=== PATIENT | male | born 1955 | race Hispanic/Latino ===

== ENCOUNTER 2017-03-17 10:19 | Outpatient (CLI) | payer BC ==
[2017-03-17 11:32] LABS: Hematocrit 40.3 % (42.0-52.0); Mean Platelet Volume 9.4 fL (7.4-10.4); Red Blood Cell (RBC) Count 4.45 mill/uL (4.70-6.10); White Blood Cell (WBC) Count 6.8 thou/uL (4.8-10.8)
[2017-03-17 11:47] LABS: PTT 38.6 SEC (22.9-36.1); Prothrombin Time 13.7 SEC (12.0-14.7)
[2017-03-17 11:57] LABS: Anion Gap 12 mmol/L (10-20); BUN (Urea Nitrogen) 27 mg/dL (8.4-25.7); Calc. Creatinine Clearance 0 mL/min (70-130); Calcium 9.5 mg/dL (7.8-10.44); Carbon Dioxide 26 mmol/L (23-31); Chloride 107 mmol/L (98-107); Estimated GFR-MDRD 38
[2017-03-17 14:07] LABS: Bilirubin Negative (Negative); Blood, Urine Negative (Negative); Glucose, Urine (Dipstick) Negative (Negative); Ketone, Urine Negative (Negative); Nitrite Negative (Negative); Protein, Urine (Dipstick) Negative (Neg-Trace); Urobilinogen 0.2 mg/dL (0.2-1.0)
[2017-03-17 14:19] LABS: Bacteria/HPF None Seen HPF (None Seen); Hyaline Casts/LPF 0-3 HYALINE CAST LPF (0-3 Hyaline); RBC/HPF 0-3 HPF (0-3); Squamous Epithelial None Seen HPF (0-3); WBC/HPF None Seen HPF (0-3)
== END 2017-03-17 10:20 | disposition home or self-care (01) ==
LOC: LABBT 10:19
PROVIDERS: ATTEND Urology
DX: N13.39 Other hydronephrosis (principal); N32.89 Other specified disorders of bladder; N28.9 Disorder of kidney and ureter, unspecified
CPT/HCPCS: 80048; 81001; 85027; 85610; 85730; 87086; 88112

== ENCOUNTER 2017-03-18 06:45 | Outpatient (CLI) | payer BC | END 2017-03-18 06:46 | disposition home or self-care (01) | LOC: BICCT 06:45 | PROVIDERS: ATTEND Urology | DX: N13.39 Other hydronephrosis (principal); N32.89 Other specified disorders of bladder; N13.9 Obstructive and reflux uropathy, unspecified | CPT/HCPCS: 74176; 86850; 86900; 86901; 88112 ==

== ENCOUNTER 2017-03-18 09:04 | Outpatient (CLI) | payer BC | END 2017-03-18 09:05 | disposition home or self-care (01) | LOC: LABBT 09:04 | PROVIDERS: ATTEND Urology | DX: Z01.812 Encounter for preprocedural laboratory examination (principal); N13.30 Unspecified hydronephrosis | CPT/HCPCS: 86850; 86900; 86901; 88112 ==

== ENCOUNTER 2017-03-21 09:46 | Day surgery (SDC) | payer BC ==
[2017-03-17 11:02] VITALS: BMI 32.5
[2017-03-21] MEDS ORDERED: Levofloxacin 500 mg/D5W 100 ml Premix Bag ONE (11:48)
[2017-03-21] MEDS ORDERED: Fentanyl 100 MCG/2 ML VIAL ONE ×2 (12:07→13:59)
[2017-03-21] MEDS ORDERED: Iothalamate Meglumine 60% 50 ML VIAL FS ONE (12:14)
[2017-03-21] MEDS ORDERED: Piperacillin/Tazobactam 3.375 GM VIAL ONE (14:25)
[2017-03-21] MEDS ORDERED: SUGAMMADEX SODIUM 200 MG/2 ML VIAL ONE (14:43)
[2017-03-21] MEDS ORDERED: Lidocaine 1% PF 5 ML VIAL ONE (15:22)
[2017-03-21] MEDS ORDERED: Labetalol HCl 100 MG/20 ML VIAL ONE (15:22)
[2017-03-21] MEDS ORDERED: PHENYLEPHRINE-NS 100 MCG/ML 10 ML SYRINGE ONE (15:22)
[2017-03-21] MEDS ORDERED: ePHEDrine/0.9% NaCl/PF SYRINGE 50 mg/10 ml ONE (15:22)
[2017-03-21] MEDS ORDERED: Dexamethasone 20 MG/5 ML VIAL ONE (15:22)
[2017-03-21] MEDS ORDERED: Glycopyrrolate 0.2 MG/ML 5 ML SYRINGE ONE (15:22)
[2017-03-21] MEDS ORDERED: Propofol 200 MG/20 ML VIAL ONE (15:22)
[2017-03-21] MEDS ORDERED: Ondansetron HCl/PF 4 MG/2 ML Vial ONE (15:22)
[2017-03-21] MEDS ORDERED: Phenazopyridine HCl 97.5 MG TABLET ONE (15:23)
[2017-03-21] MEDS ORDERED: Oxybutynin 5 MG TAB ONE (15:23)
--- NOTE | 2017-03-21 17:54 | OP ---
DATE OF SERVICE: 03/21/2017 PREOPERATIVE DIAGNOSES: A 62-year-old male with left hydronephrosis, acute renal insufficiency, rule out malignancy. POSTOPERATIVE DIAGNOSES: A 62-year-old male with left hydronephrosis, acute renal insufficiency, rule out malignancy. PROCEDURE: Cystoscopy, left retrograde pyelogram, 6 x 28 double-J ureteral stent placement with distal tail in situ, rigid ureteroscopy, ureteral biopsy x3. SURGEON: Shannon Arroyo D.O. ANESTHESIA: General. COMPLICATIONS: None apparent. DISPOSITION: To the recovery room in stable condition. IV FLUIDS: 1100 mL. ESTIMATED BLOOD LOSS: Minimal. DRAINS: A 6 x 28 left double-J ureteral stent, 18 Bangladeshi 10 mL urethral Duncan catheter to gravity leg bag. INTRAOPERATIVE FINDINGS: 1. MIld/ Moderate benign prostatic hyperplasia. 2. No evidence of bladder mass. 3. Left intramural ureteral debris with no evidence of distal ureteral mass. 4. Left proximal ureteral mass suspicious for TCC. 5. Severe left hydronephrosis. SPECIMEN: 1. Left ureteral biopsy x3. 2. Left distal UVJ intramural ureteral debris sent as a separate specimen. INDICATIONS FOR THE PROCEDURE AND HISTORY: Mr. Fountain is a 62-year-old male referred to me by Nephrology for renal insufficiency and severe hydronephrosis. Renal bladder ultrasound demonstrated possible bladder mass; however, this was nonspecific. A CT staging with noncontrast was obtained, there was a possibility of bladder mass obstructing the ureter; however, per my review, there is a hyperdensity at the proximal ureter measuring 3.7 cm in craniocaudal dimension and distal to this, there is no evidence of hydroureter. He presents today for diagnostic evaluation. He has been cleared by Internal Medicine, Cardiology; Neurology cleared him to be on baby aspirin from 325mg . Risks and complications including, but not limited to, bleeding, pain, infection, injury to adjacent organs, urosepsis , PE, DVT, perioperative morbidity and mortality CVA reviewed. All questions answered to his satisfaction, he desired to proceed. DESCRIPTION OF THE PROCEDURE: After an informed consent was signed, the patient was taken to the operating room, placed in a dorsal lithotomy position with the genital area prepped and draped in the usual surgical sterile fashion. Broad-spectrum antibiotics were provided. A 21 Bangladeshi cystoscope was utilized for cystoscopy. There was evidence of mild/moderate obstructing lateral lobes. Bladder was entered without any issues. There was no evidence of bladder lesion. The UOs were identified in normal anatomical location. However, the left intramural ureter appeared have intrinsic prominence due to mass effect. I was unable to perform a proper retrograde pyelogram as there was immediate efflux retrograde due to high-grade obstruction of the intramural portion, and unable to pass a 0.35 sensor nor angled Glidewire. I subsequently transitioned to rigid ureteroscope, with the ureter engaged with the ureteroscope, I was able to pass a 0.35 angled Glidewire to the level of the proximal ureter. Upon passing the ureteroscope/and wire to assess the distal intramural ureter, there was moderate amount of sedimentous whitish debris that effluxed . This was evacuated, and sent as a specimen. Ureteroscopic assessment of the distal ureter did not demonstrate evidence of intrinsic ureteral mass. We then subsequently transitioned to a cystoscope, as there was resistance at the level of the L3-L4 ureter with the wire. We passed an open-ended catheter to this level, there was a high-grade obstruction, which I was unable to opacify proximal to this on retrograde pyelogram. With negotiation I was able to pass a 0.35 Glidewire to the left upper pole and subsequently passed a 5 Bangladeshi open-ended catheter to the level of the renal pelvis. Retrograde pyelogram confirmed proper placement of the wire demonstrating severe hydronephrosis. The wire was then switched to a 0.35 sensor wire. Diagnostic ureteroscopy demonstrated a moderate large calcified mass at the level of L3-L4 ureter consistent with the CAT scan location. Using a back loading rigid cold cup biopsy, obtained three separate biopsies appeared to be good specimen. It is highly suspicious for TCC. We subsequently passed a 6 x 28 double-J ureteral stent with distal tail in situ. I did scope his ureter again to ensure that there was no other lesion, which I did not appreciate distal to the proximal ureteral mass. After the stent was placed, bladder was completely evacuated. An 18 Bangladeshi 10 mL urethral Duncan catheter was placed as there was moderate amount of debris with decompression of the severely hydronephrotic kidney. He was transferred to the recovery room in stable condition. He will follow up with me next week for removal of Duncan catheter. Discharge with ciprofloxacin 250 mg one p.o. b.i.d. for 7 days, Colace p.r.n., AZO p.r.n., VESIcare 5 mg 1 p.o. b.i.d. #5, [place] 5/325 #50 one to two p.o. q.6-8 hours p.r.n. prescription is provided. He will follow up regarding pathology results for further staging. MTDD
--- NOTE | 2017-03-21 21:18 | RAD ---
RETROGRADE PYELOGRAM 11 VIEWS: 03/21/17 Attention Sunita in billing: yes, this is an 11 view study. HISTORY: 62-year-old male with bladder mass and hydronephrosis. COMPARISON: No prior radiographs, CTs or ultrasounds, of the abdomen or pelvis. FINDINGS: Fluoroscopic spot images obtained in the OR of the left side of the abdomen and pelvis demonstrate fi rst a wire access of what is presumed to be the mid left ureter, followed by access of what is though t to be the left renal collecting system, followed by ingestion of contrast opacifying two severely d ilated left renal calyces. The rest of the left renal collecting system is not opacified. Final image s demonstrate placement of a left nephroureteral stent. IMPRESSION: 1. Severe left hydronephrosis. 2. Placement of left ureteral stent. POS: [facility]
== END 2017-03-21 17:13 | disposition home or self-care (01) ==
LOC: SDC 09:46
PROVIDERS: ATTEND Urology
PROC: 0T778DZ Dilation of Left Ureter with Intraluminal Device, Via Natural or Artificial Opening Endoscopic (ICD-10-PCS; principal; 2017-03-21)
PROC: 0TB78ZX Excision of Left Ureter, Via Natural or Artificial Opening Endoscopic, Diagnostic (ICD-10-PCS; principal; 2017-03-21)
DX: C66.2 Malignant neoplasm of left ureter (principal); N13.30 Unspecified hydronephrosis; N17.9 Acute kidney failure, unspecified; N40.0 Benign prostatic hyperplasia without lower urinary tract symptoms; I69.398 Other sequelae of cerebral infarction; H53.461 Homonymous bilateral field defects, right side; E11.22 Type 2 diabetes mellitus with diabetic chronic kidney disease; I12.9 Hypertensive chronic kidney disease with stage 1 through stage 4 chronic kidney disease, or unspecified chronic kidney disease; N18.3 Chronic kidney disease, stage 3 (moderate); E11.3299 Type 2 diabetes mellitus with mild nonproliferative diabetic retinopathy without macular edema, unspecified eye; E66.9 Obesity, unspecified; E78.5 Hyperlipidemia, unspecified; Z68.32 Body mass index [BMI] 32.0-32.9, adult; Z79.82 Long term (current) use of aspirin; Z79.2 Long term (current) use of antibiotics; Z79.899 Other long term (current) drug therapy; Z95.818 Presence of other cardiac implants and grafts; Z98.890 Other specified postprocedural states; Z87.891 Personal history of nicotine dependence
CPT/HCPCS: 74420; 86850; 86900; 86901; 88305; C1758; C1769; J1100; J1956; J2001; J2405; J2543; J2704; J3010; Q9961

== ENCOUNTER 2017-04-03 10:51 | Outpatient (CLI) | payer BC ==
--- NOTE | 2017-04-03 15:49 | NM ---
NUCLEAR MEDICINE BONE SCAN: 04/03/17 HISTORY: Left ureteral cancer. 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 COMPARISON: CT 03/18/17 outside facility. FINDINGS: Whole body delayed imaging was performed after the intravenous administration of 30 millicuries techn etium 99m MDP. There is normal osseous uptake of radiotracer. No focal increased areas of decreased areas of rotatio nal uptake to suggest metastatic disease. Left sided hydronephrosis. Moderate degenerative changes of the knees. Moderate degenerative changes of the left ankle and midfoot. IMPRESSION: 1. No evidence of osseous metastatic disease. 2. Left sided hydronephrosis. POS: [facility]
== END 2017-04-03 10:52 | disposition home or self-care (01) ==
LOC: NM 10:51
PROVIDERS: ATTEND Urology
DX: C66.2 Malignant neoplasm of left ureter (principal); N13.30 Unspecified hydronephrosis
CPT/HCPCS: 78306; A9503

== ENCOUNTER 2017-04-04 09:24 | Outpatient (CLI) | payer BC ==
[2017-04-04 10:00] LABS: ALT (SGPT) 36 U/L (8-55); AST (SGOT) 24 U/L (5-34); Alkaline Phosphatase 62 U/L (40-150); Anion Gap 12 mmol/L (10-20); BUN (Urea Nitrogen) 29 mg/dL (8.4-25.7); Bilirubin, Direct 0.3 mg/dL (0.1-0.3); Bilirubin, Total 0.6 mg/dL (0.2-1.2); Calc. Creatinine Clearance 0 mL/min (70-130); Calcium 10.2 mg/dL (7.8-10.44); Carbon Dioxide 26 mmol/L (23-31); Chloride 107 mmol/L (98-107); Estimated GFR-MDRD 41; Protein, Total 8.1 g/dL (5.8-8.1)
--- NOTE | 2017-04-04 13:56 | CT ---
CT CHEST AND ABDOMEN AND PELVIS WITHOUT IV CONTRAST: HISTORY: Left ureteral cancer. 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 FINDINGS: Absence of oral and IV contrast reduces the sensitivity of the exam, particularly for evaluation of m ediastinal hilar vascular structures and solid organs involved. The possibility of metastatic diseas e cannot be completely excluded on this study. Bullous changes are seen in the lung figueredo bilaterally. There is a 5 mm peripheral nodule in the le ft lower lobe. No pleural or pericardial effusions are seen. No mediastinal, axillary, or periaortic lymphadenopathy is seen. There are vascular calcifications w ithout evidence of aneurysmal dilatation of the thoracic aorta. No calcified gallstones are seen. No free air or free fluid is noted in the abdomen or pelvis. A no rmal appearing appendix is seen. A fat-containing left inguinal hernia is present. No calculi are seen in the kidneys, ureters, or urinary bladder. There is a 1 cm low density lesion in the right kidney and a 1.4 cm low density lesion in the left renal cortex. There is a left-sided ureteral stent. There is thickening of the proximal left ureter and left hydronephrosis. The prosta te is enlarged. There are degenerative changes in the thoracolumbar spine. No osteolytic or osteobl astic lesions are seen. IMPRESSION: 1. Bullous emphysema. 2. A 5 mm, indeterminate left lower lobe lung nodule. 3. Low density lesion in the kidneys. Ultrasound is recommended to confirm that these represent cys ts. 4. Left proximal ureteric mass/malignancy. 5. Prostatic enlargement. POS: [facility]
== END 2017-04-04 09:25 | disposition home or self-care (01) ==
LOC: CT 09:24
PROVIDERS: ATTEND Internal Medicine Medical Oncology
DX: C66.2 Malignant neoplasm of left ureter (principal); J43.9 Emphysema, unspecified; R91.1 Solitary pulmonary nodule; N28.89 Other specified disorders of kidney and ureter; N40.0 Benign prostatic hyperplasia without lower urinary tract symptoms
CPT/HCPCS: 71250; 74177; 80048; 80076

== ENCOUNTER 2017-04-28 09:59 | Day surgery (SDC) | payer BC ==
[2017-04-25 15:19] VITALS: BMI 33.5
[2017-04-28] MEDS ORDERED: CEFAZOLIN/Water 2 GM/20 ML SYRINGE ONE (10:32)
[2017-04-28] MEDS ORDERED: Lidocaine 2% w/Epinephrine 1:200K 20 ML VIAL ONE (11:18)
[2017-04-28] MEDS ORDERED: Bupivacaine 0.25% HCL 30 ML VIAL ONE (11:18)
[2017-04-28] MEDS ORDERED: Fentanyl 100 MCG/2 ML VIAL ONE (11:42)
[2017-04-28] MEDS ORDERED: Midazolam HCl 2 mg/2 ml Vial ONE (11:42)
--- NOTE | 2017-04-28 14:18 | OP ---
DATE OF PROCEDURE: 04/28/2017 PREOPERATIVE DIAGNOSIS: Renal cell carcinoma. POSTOPERATIVE DIAGNOSIS: Renal cell carcinoma. PROCEDURE: MediPort (tunneled central line subcutaneous port, CT injectable). SURGEON: Keanu Rodriguez M.D. ANESTHESIA: General. ESTIMATED BLOOD LOSS: Minimal. COMPLICATIONS: None. SPECIMEN: None. FINDINGS: Tip of the catheter is at the atriocaval junction. TECHNIQUE: The patient was taken to the operation table. After sedation was obtained, bilateral nec k and chest was shaved, and draped in a sterile fashion. Local anesthetic infiltrated over the right internal jugular vein. Intrajugular vein cannulated using a 22-gauge finder needle followed by a Se ldinger needle. Wire was passed into the superior vena cava under fluoroscopic guidance. A small ni ck was made at the wire exit site. A separate 3-cm incision was made in the right upper chest. Subc utaneous pocket made below the lower incision. The tubing is threaded from the inferior to superior incision. Introducer sheath was placed over the wire into the superior vena cava under fluoroscopic guidance. The dilator and wire were removed. The end of the catheter was threaded into the sheath a nd the sheath was peeled away. The tip of the catheter was at atriocaval junction. MediPort tubing cut to fit the MediPort at the lower incision, connected this to the MediPort which was sewn to the c hest wall in the subcutaneous pocket using Prolene. The MediPort flushes and draws blood without dif ficulty. It is flushed with heparin flush. The wound was irrigated and closed using 3-0 Vicryl, 4-0 Monocryl, and Dermabond. The patient was en route to recovery in stable condition. All instrument counts, needle counts, and lap counts were correct.
[2017-04-28] MEDS ORDERED: Propofol 200 MG/20 ML VIAL ONE (14:49)
[2017-04-28] MEDS ORDERED: ePHEDrine/0.9% NaCl/PF SYRINGE 50 mg/10 ml ONE (14:49)
[2017-04-28] MEDS ORDERED: Lidocaine 1% PF 5 ML VIAL ONE (14:49)
[2017-04-28] MEDS ORDERED: Ondansetron HCl/PF 4 MG/2 ML Vial ONE (14:49)
--- NOTE | 2017-04-28 15:29 | RAD ---
ONE VIEW CHEST: History: Mediport catheter placement. Evaluate for pneumothorax. Comparison: None. FINDINGS: Right sided Mediport catheter placement with the distal tip projecting over the right atrium. There i s atherosclerosis of the aorta. Normal cardiac silhouette. No consolidation or masses. No pneumothora x or osseous abnormalities. IMPRESSION: No pneumothorax. POS: [facility]
== END 2017-04-28 13:50 | disposition home or self-care (01) ==
LOC: SDC 09:59
PROVIDERS: ATTEND Surgery
PROC: 0JH63WZ Insertion of Totally Implantable Vascular Access Device into Chest Subcutaneous Tissue and Fascia, Percutaneous Approach (ICD-10-PCS; principal; 2017-04-28)
DX: C64.9 Malignant neoplasm of unspecified kidney, except renal pelvis (principal); C66.2 Malignant neoplasm of left ureter; I69.398 Other sequelae of cerebral infarction; H53.461 Homonymous bilateral field defects, right side; E66.9 Obesity, unspecified; E78.5 Hyperlipidemia, unspecified; M10.9 Gout, unspecified; E11.3299 Type 2 diabetes mellitus with mild nonproliferative diabetic retinopathy without macular edema, unspecified eye; E11.22 Type 2 diabetes mellitus with diabetic chronic kidney disease; I12.9 Hypertensive chronic kidney disease with stage 1 through stage 4 chronic kidney disease, or unspecified chronic kidney disease; N18.3 Chronic kidney disease, stage 3 (moderate); Z68.33 Body mass index [BMI] 33.0-33.9, adult; Z79.82 Long term (current) use of aspirin; Z79.899 Other long term (current) drug therapy; Z95.818 Presence of other cardiac implants and grafts; Z98.890 Other specified postprocedural states
CPT/HCPCS: 71045; C1788; J1642; J2001; J2250; J2405; J2704; J3010; S0020

== ENCOUNTER 2017-06-30 13:59 | Outpatient (CLI) | payer BC ==
--- NOTE | 2017-06-30 18:10 | RAD ---
FRONTAL AND LATERAL IMAGING OF THE CHEST: 06/30/2017 COMPARISON: 04/28/2017 HISTORY: Transitional cell carcinoma. FINDINGS: Incompletely imaged ureteral stent present on the left. Stable left loop recorder and right Port-A-C ath. No pneumothorax, lobar consolidation, or alveolar edema. Inspiration is shallow. There is pat milly increased linear density in the left lung base which may signify volume loss or less likely, infi ltrate. IMPRESSION: No lobar consolidation or alveolar edema. Patchy opacity noted in the left lung base. POS: [facility]
--- NOTE | 2017-06-30 19:04 | CT ---
CT ABDOMEN AND PELVIS WITHOUT IV CONTRAST: INDICATIONS: History of primary transitional cell carcinoma, currently on chemotherapy. COMPARISON: 04/04/2017. FINDINGS: There are small pulmonary cysts involving the lower lungs bilaterally, likely related to areas of sma ll centrilobular emphysema. Unopacified liver, spleen, pancreas, and adrenal glands are unremarkable. The moderate left pelvocal iectasis is similar appearing. The wall thickening surrounding the proximal left ureter and the left UPJ appears similar. The left double-J ureteral stent is unchanged in position. The small renal hypodensities bilaterally are similar appearing and difficult to fully characterize d ue to their size. There is a normal appendix in the right lower quadrant. There are moderate vascular calcifications seen bilaterally. There are fat-containing inguinal hernias bilaterally. No definite acute osseous abnormality is evident. IMPRESSION: 1. Stable examination of abdomen and pelvis without intravenous contrast. 2. There is prominent wall thickening involving the proximal left ureter, consistent with the patien t's history of transitional cell carcinoma. 3. Moderate left pelvocaliectasis remains. 4. Left ureteral stent is unchanged in position. 5. Renal hypodensities are difficulty to characterize on this noncontrast CT evaluation. Renal ultr asound may be helpful for additional characterization. 6. Chronic findings as above. POS: [facility]
== END 2017-06-30 14:00 | disposition home or self-care (01) ==
LOC: NM 13:59
PROVIDERS: ATTEND Urology
DX: C66.2 Malignant neoplasm of left ureter (principal); N28.89 Other specified disorders of kidney and ureter; R91.8 Other nonspecific abnormal finding of lung field; Z96.0 Presence of urogenital implants
CPT/HCPCS: 71046; 74176

== ENCOUNTER 2017-07-14 08:21 | Outpatient (CLI) | payer BC ==
[2017-07-14 09:41] LABS: PTT 35.3 SEC (22.9-36.1); Prothrombin Time 13.1 SEC (12.0-14.7)
[2017-07-14 09:43] LABS: Hemoglobin 10.9 g/dL (14.0-18.0); Mean Corpuscular Hemoglobin 31.5 pg (27.0-31.0); Mean Corpuscular Volume 92.6 fl (80.0-94.0); Mean Platelet Volume 8.3 fL (7.4-10.4); Platelet Count 161 thou/uL (130-400); RBC Distribution Width 15.5 % (11.5-14.5); Red Blood Cell (RBC) Count 3.47 mill/uL (4.70-6.10); White Blood Cell (WBC) Count 3.9 thou/uL (4.8-10.8)
[2017-07-14 09:53] LABS: ALT (SGPT) 19 U/L (8-55); AST (SGOT) 19 U/L (5-34); Alkaline Phosphatase 49 U/L (40-150); Anion Gap 9 mmol/L (10-20); BUN (Urea Nitrogen) 27 mg/dL (8.4-25.7); Bilirubin, Total 0.3 mg/dL (0.2-1.2); Calc. Creatinine Clearance 0 mL/min (70-130); Calcium 9.4 mg/dL (7.8-10.44); Carbon Dioxide 25 mmol/L (23-31); Chloride 108 mmol/L (98-107); Estimated GFR-MDRD 50; Globulin 2.9 g/dL (2.4-3.5); Glucose 94 mg/dL (80-115); Potassium 4.4 mmol/L (3.5-5.1); Protein, Total 6.9 g/dL (5.8-8.1); Sodium 138 mmol/L (136-145)
--- NOTE | 2017-07-14 21:10 | EKG ---
Test Reason : Blood Pressure : / mmHG Vent. Rate : 075 BPM Atrial Rate : 075 BPM P-R Int : 150 ms QRS Dur : 086 ms QT Int : 362 ms P-R-T Axes : 028 017 007 degrees QTc Int : 404 ms Normal sinus rhythm Normal ECG When compared with ECG of 15-JUL-2016 15:04, ST elevation now present in Lateral leads Nonspecific T wave abnormality no longer evident in Lateral leads Confirmed by DEREK BIGGS ([id number]) on 07/14/2017 9:10:06 PM Referred By: DANIEL Confirmed By:DEREK BIGGS
== END 2017-07-14 08:22 | disposition home or self-care (01) ==
LOC: LABBT 08:21
PROVIDERS: ATTEND Urology
DX: Z01.818 Encounter for other preprocedural examination (principal); C66.2 Malignant neoplasm of left ureter
CPT/HCPCS: 80053; 85027; 85610; 85730; 93005; 93010

== ENCOUNTER 2017-07-18 08:38 | Outpatient (CLI) | payer BC | END 2017-07-18 08:39 | disposition home or self-care (01) | LOC: LABBT 08:38 | PROVIDERS: ATTEND Urology | DX: Z01.812 Encounter for preprocedural laboratory examination (principal); C66.2 Malignant neoplasm of left ureter | CPT/HCPCS: 86850; 86900; 86901 ==

== ENCOUNTER 2017-07-21 06:00 | Inpatient (IN) | payer BC ==
[2017-07-21] MEDS ORDERED: Fentanyl 100 MCG/2 ML VIAL ONE (06:29)
[2017-07-21] MEDS ORDERED: Midazolam HCl 2 mg/2 ml Vial ONE (06:29)
[2017-07-21] MEDS ORDERED: Fentanyl 250 MCG/5 ML VIAL ONE (06:30)
[2017-07-21] MEDS ORDERED: Levofloxacin 500 mg/D5W 100 ml Premix Bag ONE (06:31)
[2017-07-21] MEDS ORDERED: CEFAZOLIN/Water 2 GM/20 ML SYRINGE ONE (06:31)
[2017-07-21] MEDS ORDERED: Acetaminophen 1,000 MG in Premix Bag 1 BAG IVPB PRN (06:52)
[2017-07-21] MEDS ORDERED: Promethazine HCl 25 MG/ML VIAL IM PRN (07:00)
[2017-07-21] MEDS ORDERED: Naloxone HCl 0.4 mg/ml Vial IVP PRN (07:00)
[2017-07-21] MEDS ORDERED: Hydrocerin (Eucerin) Cream 120 gm Jar TOP PRN (07:00)
[2017-07-21] MEDS ORDERED: fentaNYL Citrate/PF 1,250 MCG, Bupivacaine 25 ML in Sodium Chloride 0.9% 250 ML 200 ML EPIDURAL SCH (07:00)
[2017-07-21] MEDS ORDERED: traMADol HCl 50 MG TAB PO PRN (07:00)
[2017-07-21] MEDS ORDERED: diphenhydrAMINE 50 MG/ML VIAL IVP PRN ×2 (07:00→15:27)
[2017-07-21] MEDS ORDERED: HYDROcodone/Acetaminophen 5/325 mg Tablet PO PRN (07:00)
[2017-07-21] MEDS ORDERED: diphenhydrAMINE 50 MG/ML VIAL IM PRN (07:00)
[2017-07-21] MEDS ORDERED: Promethazine HCl 25 MG SUPP PR PRN (07:00)
[2017-07-21] MEDS ORDERED: diphenhydrAMINE 25 MG CAP PO PRN (07:00)
[2017-07-21] MEDS ORDERED: Naloxone HCl 0.4 mg/ml Vial IV PRN (07:00)
[2017-07-21] MEDS ORDERED: Bupivacaine 0.25% 10 ML VIAL EPIDURAL PRN (07:00)
[2017-07-21] MEDS ORDERED: Ondansetron PF 4 MG/2 ML Vial IVP PRN (07:00)
[2017-07-21] MEDS ORDERED: Zolpidem Tartrate 5 MG TAB PO PRN (07:00)
[2017-07-21] MEDS ORDERED: Phenylephrine HCL 10 MG, Admixture Fee 1 EACH in Sodium Chloride 0.9% 250 ML 250 ML IV SCH (09:30)
[2017-07-21] MEDS ORDERED: Phenylephrine 10 MG/NS 250 ML 250 ML IVPB SCH (09:30)
[2017-07-21] MEDS ORDERED: Gentamicin 80 MG/2 ML VIAL ONE (11:01)
--- NOTE | 2017-07-21 13:48 | RAD ---
SINGLE VIEW OF THE CHEST: COMPARISON: 04/28/17. HISTORY: Pneumothorax. FINDINGS: A single view of the chest shows a cardiomediastinal silhouette which is upper limits of normal in si ze. The MediPort is unchanged in position. There is a cardiac monitoring device projecting over the left chest wall. There is no evidence of consolidation, mass, or pleural effusion. An NG tube is s een with its tip in the stomach. IMPRESSION: No evidence of acute cardiopulmonary disease. POS: [facility]
[2017-07-21 14:00] LABS: #Lymphocytes 0.5 thou/uL (1.20-3.40); #Monocytes 0.5 thou/uL (0.11-0.59); #Neutrophils 6.4 thou/uL (1.40-6.50); %Basophils 0.3 % (0.0-1.0); %Eosinophils 0.3 % (0.0-10.0); %Lymphocytes 6.4 % (21.0-51.0); %Monocytes 7.1 % (0.0-10.0); %Neutrophils 85.9 % (42.0-75.0); Mean Corpuscular HGB CONC 33.1 g/dL (32.0-36.0); Mean Corpuscular Hemoglobin 31.4 pg (27.0-31.0); Mean Corpuscular Volume 94.6 fl (80.0-94.0); Mean Platelet Volume 8.5 fL (7.4-10.4); Platelet Count 124 thou/uL (130-400); RBC Distribution Width 14.9 % (11.5-14.5); White Blood Cell (WBC) Count 7.5 thou/uL (4.8-10.8)
[2017-07-21 14:17] LABS: Anion Gap 10 mmol/L (10-20); BUN (Urea Nitrogen) 27 mg/dL (8.4-25.7); Calc. Creatinine Clearance 67 mL/min (70-130); Calcium 8.7 mg/dL (7.8-10.44); Carbon Dioxide 25 mmol/L (23-31); Chloride 106 mmol/L (98-107); Estimated GFR-MDRD 49; Glucose 136 mg/dL (80-115); Sodium 137 mmol/L (136-145)
[2017-07-21] MEDS ORDERED: hydrALAZINE 25 MG TAB PO SCH ×2 (15:00)
[2017-07-21] MEDS ORDERED: cefTRIAXone\\ROCEPHIN 1 GM in Sodium Chloride 0.9% 100 ML IVPB SCH (15:27)
[2017-07-21] MEDS ORDERED: hydrALAZINE 20 MG/ML VIAL SLOW IVP PRN ×2 (15:27)
[2017-07-21] MEDS ORDERED: Bisacodyl 10 MG SUPP PR PRN (15:27)
[2017-07-21] MEDS ORDERED: Acetaminophen 500 MG TAB PO PRN (15:27)
[2017-07-21] MEDS ORDERED: Lidocaine 1% PF 5 ML VIAL ONE (15:58)
[2017-07-21] MEDS ORDERED: PROPOFOL 200 MG/20 ML VIAL ONE (15:58)
[2017-07-21] MEDS ORDERED: Ondansetron PF 4 MG/2 ML Vial ONE (15:58)
[2017-07-21] MEDS ORDERED: ePHEDrine/0.9% NaCl/PF SYRINGE 50 mg/10 ml ONE (15:58)
[2017-07-21] MEDS ORDERED: PHENYLEPHRINE-NS 100 MCG/ML 10 ML SYRINGE ONE (15:58)
[2017-07-21] MEDS ORDERED: Glycopyrrolate 0.2 MG/ML 5 ML SYRINGE ONE (15:58)
[2017-07-21] MEDS: hydrALAZINE 25 MG TAB PO SCH ×2 (17:41→21:25)
[2017-07-21] MEDS: Sodium Chloride 0.9% 1,000 ML IV SCH (17:56)
[2017-07-21] MEDS: cefTRIAXone\\ROCEPHIN 1 GM, Syringe 0.4 ML in Sterile Water 9.6 ML SLOW IVP SCH (17:56)
[2017-07-21] MEDS: Allopurinol 100 MG TAB PO SCH (21:22)
[2017-07-21] MEDS: Atorvastatin Calcium 20 MG TAB PO SCH (21:22)
[2017-07-21] MEDS: Carvedilol 25 MG TAB PO SCH (21:22)
[2017-07-21] MEDS: Docusate 100 MG CAP PO SCH (21:26)
[2017-07-21] MEDS: Famotidine 40 MG/4 ML VIAL SLOW IVP SCH (23:11)
[2017-07-22] MEDS: Sodium Chloride 0.9% 1,000 ML IV SCH ×3 (03:46→23:14)
[2017-07-22 05:38] LABS: #Lymphocytes 0.9 thou/uL (1.20-3.40); #Monocytes 0.9 thou/uL (0.11-0.59); #Neutrophils 4.9 thou/uL (1.40-6.50); %Eosinophils 0.4 % (0.0-10.0); %Lymphocytes 13.1 % (21.0-51.0); %Monocytes 12.8 % (0.0-10.0); %Neutrophils 73.7 % (42.0-75.0); Hemoglobin 9.7 g/dL (14.0-18.0); Mean Corpuscular HGB CONC 33.9 g/dL (32.0-36.0); Mean Corpuscular Hemoglobin 31.4 pg (27.0-31.0); Mean Corpuscular Volume 92.6 fl (80.0-94.0); Mean Platelet Volume 8.8 fL (7.4-10.4); Platelet Count 111 thou/uL (130-400); RBC Distribution Width 14.9 % (11.5-14.5); Red Blood Cell (RBC) Count 3.09 mill/uL (4.70-6.10); White Blood Cell (WBC) Count 6.6 thou/uL (4.8-10.8)
[2017-07-22 05:52] LABS: Anion Gap 11 mmol/L (10-20); BUN (Urea Nitrogen) 22 mg/dL (8.4-25.7); Calc. Creatinine Clearance 66 mL/min (70-130); Calcium 8.4 mg/dL (7.8-10.44); Carbon Dioxide 24 mmol/L (23-31); Chloride 104 mmol/L (98-107); Estimated GFR-MDRD 48; Glucose 92 mg/dL (80-115); Potassium 3.9 mmol/L (3.5-5.1); Sodium 135 mmol/L (136-145)
--- NOTE | 2017-07-22 08:30 | PRG ---
DATE OF SERVICE: 07/22/2017 SUBJECTIVE: The patient feeling well, epidural is providing good pain control. Denies headache, nausea. However, his appetite is not great this morning. No flatus as of yet. PHYSICAL EXAMINATION: VITAL SIGNS: Afebrile, 98.4, 98, 16, 94%, 171/80. I's and O's 750 in, 2485 out. SHELLIE 35 since OR. Urine output 2450. LUNGS: Clear to auscultation. ABDOMEN: Soft, nontender, bowel sounds are present, mildly sluggish. Incision dressing changed. Minimal drainage at the inferior aspect. SHELLIE is adequately secured charged. EXTREMITIES: No cyanosis, clubbing or edema. No calf tenderness. LABORATORY DATA: White count 6, hemoglobin 9.7, platelet 111, sodium 135, potassium 3.9, BUN 22, creatinine 1.4 with baseline creatinine is 1.82-1.39. IMPRESSION AND PLAN: Postop day #1 status post left nephroureterectomy with bladder cuff, transurethral incision of left ureteral orifice, left stent removal. patient doing well. Continue epidural, titrate slowly down per pain service, no Toradol as he is status post nephrectomy with history of renal insufficiency. As his appetite is somewhat poor, we will keep the patient on clear liquids. PT consultation has been obtained for a walking program as the patient is to be out of bed with assist only. Continue IV fluids. DVT medical prophylaxis when urine output has been clear off CBI for minimum 24 hours. We will hold CBI today and monitor his urine output. Aggressive mechanical DVT prophylaxis with bilateral ISABEL hose, SCDs and dorsi and plantar flexion while in bed. BIBI
--- NOTE | 2017-07-22 09:09 | OP ---
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 PROCEDURES: Cystoscopy, transurethral incision of left ureteral orifice, removal of left ureteral stent, left nephroureterectomy with bladder cuff, partial resection of left twelfth rib. SURGEON: Shannon Arroyo D.O. HR BUSINESS PARTNER: Brian Zhang M.D. ANESTHESIA: General spinal. COMPLICATIONS: None apparent. DISPOSITION: To recovery room in stable condition. DRAINS: 1. A 22-Mosotho 30 mL three-way Duncan catheter to CBI. 2. A #10 SHELLIE to bulb suction. SPECIMENS: 1. Left kidney, ureter, and bladder cuff. 2. tip of the 12th rib. INDICATIONS FOR THE PROCEDURE AND HISTORY: Mr. Fountain is a 62-year-old male with history of hypertension who presented to my office due to incidental finding of hydronephrosis. Subsequent workup demonstrated a high- grade urothelial carcinoma of the proximal ureter with lamina propria invasion with squamous differentiation. He underwent ureteral biopsy, underwent ureteral stent due to severe hydronephrosis. He has received 4 cycles of neoadjuvant chemotherapy with cisplatin and Gemzar. He presents today for left nephroureterectomy with bladder cuff. Risks and complications of the procedure was reviewed with him in detail including, but not limited to, bleeding, pain, infection, injury to adjacent organs, urosepsis, PE, DVT, perioperative morbidity and mortality, renal insufficiency/failure requiring hemodialysis, wound complication was reviewed with the patient and family in detail and he desired to proceed without reservation. DESCRIPTION OF THE PROCEDURE: After an informed consent is signed, the patient is taken to the operating room, placed in supine position with general anesthesia administered. It was difficulty obtaining a spinal. Therefore, this will be attempted post procedure. The patient received broad spectrum antibiotics with Levaquin and Ancef and placed in dorsal lithotomy position. Bilateral ISABEL hose and SCDs were provided. Using a 22-Mosotho cystoscope utilized for cystoscopy which demonstrated normal anterior and posterior urethra , prostatic urethra demonstrated mild to moderately obstructing prostate. Upon entering the bladder, again noted is a previously appreciated left ureteral stent. There was no evidence of bladder tumor as appreciated on the recent local cystoscopy. We then transitioned to a 26-Mosotho resectoscope with a Armstrong knife. We scored the left ureteral orifice as much as we could visualizing the perivesical fat. Then we subsequently passed a 22-Mosotho 30 mL urethral Duncan catheter with CBI tubing attached. The patient was then reprepped and draped for the left open nephroureterectomy. The patient was positioned of modified flank position with all pressure points padded and protected at all times. NG tube was placed. At this time, using a supra eleventh intercostal retroperitoneal incision, the incision was made from the paraspinous muscle towards the midline towards the umbilicus. The skin was opened to the limits of skin incision. The latissimus and the external and internal oblique muscles were opened to the limits of skin incision. The transversalis muscle was then split entering the retroperitoneal space. The tip of the 11th and the 12th rib was visualized. We made an incision just inferior to the eleventh rib. The retroperitoneal space was developed using blunt and sharp dissection. We mobilized the peritoneum off the anterior rectus sheath. The ureter was isolated, which appeared to be densely adherent and had phlegmonous reaction due to the previous ureteral tumor. This was dissected to the level distally as much as we can from the incision. The kidney was completely mobilized superior medially. The peritoneum appeared to be adherent to the anterior serratus fascia as well as superior. We made a small peritoneotomy incision which was closed with 2-0 Vicryl. The superior pole of the kidney was completely mobilized. We left the adrenal gland in situ as there is no evidence of abnormality on the imaging nor any significant lymph nodes. The kidney was completely mobilized except the renal hilum. There was no significant lymphadenopathy noted on CT nor on gross inspection. The renal artery and vein was developed sharply, and using a vascular stapler 2 mm load, 45 mm in length, [place] flex endoscopic vascular stapler was utilized to staple the hilum and divided. Good hemostasis was obtained. There was minimal oozing from the renal fossa. The kidney was wrapped in appropriate dressing and the ureter was isolated distally. We extended the incision towards the pubic symphysis paramedian mobilizing the ureter distally as it entered the bladder hiatus. Using sharp dissection, we mobilized the ureter to the level of the bladder cuff that was scored. The stent and the ureter were removed en bloc with the kidney. The bladder was then closed with 2-0 Vicryl in a figure- of-eight fashion. We tested this demonstrating good closure with no significant leak noted on bladder irrigation. At this time, the wound was copiously irrigated. There were no significant pathologic lymph nodes to be resected. We did not see any lymph nodes that were present to be removed in the hilum. At this time, the wound was copiously irrigated. FloSeal was placed in the bed of the renal hilum and the adrenal gland region and SurgiSeal laid in the spot. The wound was closed with 0 PDS in two layers. Prior to closure of the wound, we placed a #10 SHELLIE in the left retroperitoneal space and sutured to skin using 4-0 nylon. Skin was closed with skin cristina and he tolerated the procedure well. Dr. Suero from anesthesia will attempt to place an epidural post procedure. BIBI
[2017-07-22] MEDS: hydrALAZINE 25 MG TAB PO SCH ×3 (09:20→20:50)
[2017-07-22] MEDS: Docusate 100 MG CAP PO SCH ×2 (09:20→20:42)
[2017-07-22] MEDS: Carvedilol 25 MG TAB PO SCH ×2 (09:24→20:49)
[2017-07-22] MEDS: Amlodipine 10 MG TAB PO SCH (09:24)
[2017-07-22] MEDS: Tamsulosin HCl 0.4 MG CAP PO SCH (09:25)
[2017-07-22] MEDS: Famotidine 40 MG/4 ML VIAL SLOW IVP SCH ×2 (14:59→20:42)
[2017-07-22] MEDS: cefTRIAXone\\ROCEPHIN 1 GM, Syringe 0.4 ML in Sterile Water 9.6 ML SLOW IVP SCH (17:20)
[2017-07-22] MEDS: Allopurinol 100 MG TAB PO SCH (20:48)
[2017-07-22] MEDS: Atorvastatin Calcium 20 MG TAB PO SCH (20:49)
[2017-07-22] MEDS: traMADol HCl 50 MG TAB PO PRN (23:16)
[2017-07-23 04:32] LABS: Anion Gap 8 mmol/L (10-20); BUN (Urea Nitrogen) 16 mg/dL (8.4-25.7); Calc. Creatinine Clearance 66 mL/min (70-130); Calcium 8.4 mg/dL (7.8-10.44); Carbon Dioxide 26 mmol/L (23-31); Chloride 106 mmol/L (98-107); Estimated GFR-MDRD 48; Glucose 92 mg/dL (80-115); Potassium 3.8 mmol/L (3.5-5.1); Sodium 136 mmol/L (136-145)
[2017-07-23 04:39] LABS: #Eosinphils 0.1 thou/uL (0.0-0.7); #Lymphocytes 0.9 thou/uL (1.20-3.40); #Monocytes 1.1 thou/uL (0.11-0.59); #Neutrophils 6.5 thou/uL (1.40-6.50); %Basophils 0.4 % (0.0-1.0); %Eosinophils 1.7 % (0.0-10.0); %Lymphocytes 10.2 % (21.0-51.0); %Monocytes 12.5 % (0.0-10.0); %Neutrophils 75.3 % (42.0-75.0); Hemoglobin 9.8 g/dL (14.0-18.0); Mean Corpuscular HGB CONC 34.2 g/dL (32.0-36.0); Mean Corpuscular Volume 93.7 fl (80.0-94.0); Mean Platelet Volume 9.6 fL (7.4-10.4); Platelet Count 91 thou/uL (130-400); RBC Distribution Width 14.7 % (11.5-14.5); Red Blood Cell (RBC) Count 3.05 mill/uL (4.70-6.10); White Blood Cell (WBC) Count 8.6 thou/uL (4.8-10.8)
--- NOTE | 2017-07-23 07:47 | PRG ---
DATE OF SERVICE: 07/23/2017 SUBJECTIVE: The patient denies nausea or vomiting, has not yet passed flatus. Pain is adequately controlled. He has been out of bed. OBJECTIVE: VITAL SIGNS: Stable, 98.1, 90, 17, 91, 161/76. I's and O's 1140 in and 5855 out, of which urine output is 2850 over 24 hours, SHELLIE 70/24, 30 serosanguineous over the last 24 hours. LUNGS: Clear to auscultation. ABDOMEN: Soft, nontender, nondistended. Dressing is changed. There is some serosanguineous drainage from the inferior aspect, dependent in position. No ecchymosis is appreciated. SHELLIE is adequately charged. Bowel sounds are present. EXTREMITIES: No cyanosis, clubbing, or edema. No calf tenderness. PERTINENT LABORATORY DATA: White count 8.6, hemoglobin stable at 9.1; however, platelet count is decreased to 91, BUN 16, creatinine 1.4, stable. Pathology pending. IMPRESSION AND PLAN: Mr. Fountain is a 62-year-old male with history of high- grade left ureteral transitional cell carcinoma, status post nephroureterectomy with bladder cuff, stent removal. His CBI has been off for 24 hours with clear urine output; therefore, CBI port is plugged. Patient does have bowel sounds; however, not yet passed flatus. We will slowly advance him to full liquid diet and monitor. He is encouraged to be aggressively out of bed today with assist. As his platelet count is trending down, will hold initiating his Lovenox for deep vein thrombosis prophylaxis ; continuing mechanical prophylaxis with aggressive out of bed. If his platelet count is stable, we will initiate Lovenox tomorrow. Pain service to titrate his epidural down; however, it will not be abruptly discontinued, as he is going to be out of bed today more aggressively. Hep-Lock IV. MTDD
[2017-07-23] MEDS: Docusate 100 MG CAP PO SCH ×2 (08:31→20:16)
[2017-07-23] MEDS: hydrALAZINE 25 MG TAB PO SCH ×3 (08:31→20:16)
[2017-07-23] MEDS: Carvedilol 25 MG TAB PO SCH ×2 (08:32→20:15)
[2017-07-23] MEDS: Tamsulosin HCl 0.4 MG CAP PO SCH (08:32)
[2017-07-23] MEDS: Amlodipine 10 MG TAB PO SCH (08:32)
[2017-07-23] MEDS: Famotidine 40 MG/4 ML VIAL SLOW IVP SCH ×2 (08:40→20:19)
[2017-07-23] MEDS: cefTRIAXone\\ROCEPHIN 1 GM, Syringe 0.4 ML in Sterile Water 9.6 ML SLOW IVP SCH (16:13)
[2017-07-23] MEDS: Allopurinol 100 MG TAB PO SCH (20:14)
[2017-07-23] MEDS: Atorvastatin Calcium 20 MG TAB PO SCH (20:15)
[2017-07-23] MEDS: traMADol HCl 50 MG TAB PO PRN (20:17)
[2017-07-24 05:03] LABS: #Eosinphils 0.1 thou/uL (0.0-0.7); #Lymphocytes 0.8 thou/uL (1.20-3.40); #Monocytes 0.8 thou/uL (0.11-0.59); #Neutrophils 4.8 thou/uL (1.40-6.50); %Basophils 0.2 % (0.0-1.0); %Eosinophils 2.3 % (0.0-10.0); %Lymphocytes 11.9 % (21.0-51.0); %Monocytes 11.8 % (0.0-10.0); %Neutrophils 73.8 % (42.0-75.0); Hemoglobin 9.2 g/dL (14.0-18.0); Mean Corpuscular HGB CONC 33.7 g/dL (32.0-36.0); Mean Corpuscular Hemoglobin 31.3 pg (27.0-31.0); Mean Corpuscular Volume 92.8 fl (80.0-94.0); Mean Platelet Volume 9.4 fL (7.4-10.4); Platelet Count 85 thou/uL (130-400); RBC Distribution Width 14.5 % (11.5-14.5); Red Blood Cell (RBC) Count 2.94 mill/uL (4.70-6.10); White Blood Cell (WBC) Count 6.5 thou/uL (4.8-10.8)
[2017-07-24 05:09] LABS: Anion Gap 10 mmol/L (10-20); BUN (Urea Nitrogen) 15 mg/dL (8.4-25.7); Calc. Creatinine Clearance 69 mL/min (70-130); Calcium 8.7 mg/dL (7.8-10.44); Carbon Dioxide 27 mmol/L (23-31); Chloride 104 mmol/L (98-107); Estimated GFR-MDRD 50; Glucose 89 mg/dL (80-115); Potassium 3.7 mmol/L (3.5-5.1); Sodium 137 mmol/L (136-145)
[2017-07-24] MEDS: hydrALAZINE 25 MG TAB PO SCH ×3 (07:52→20:48)
[2017-07-24] MEDS: Carvedilol 25 MG TAB PO SCH ×2 (07:52→20:47)
[2017-07-24] MEDS: Tamsulosin HCl 0.4 MG CAP PO SCH (07:52)
[2017-07-24] MEDS: Amlodipine 10 MG TAB PO SCH (07:53)
[2017-07-24] MEDS: Docusate 100 MG CAP PO SCH ×2 (07:53→20:48)
--- NOTE | 2017-07-24 08:14 | PRG ---
DATE OF SERVICE: 07/24/2016 SUBJECTIVE: The patient is doing well, tolerating regular diet, denies nausea, vomiting. Pain is we ll controlled with epidural, rate down at 4. Has yet passed flatus. PHYSICAL EXAMINATION: VITAL SIGNS: Stable. He is afebrile, 97.9, 90, 145/70 , 93, 145/70. I's and O's intake is 900, out put is urine 3700. SHELLIE is 42 over /24 hours, last 12 hours 70 mL of mostly serous discharge. LUNGS: Clear to auscultation. ABDOMEN: Soft, nontender, nondistended. Incision is clean, dry. SHELLIE is adequately charged. Bowel s ounds are active. No rigidity, no rebound. EXTREMITIES: No cyanosis, clubbing or edema or calf tenderness. LABORATORY DATA: White count 6, hemoglobin 9.2, platelet count has decreased to 85. Pathology is pe nding. IMPRESSION AND PLAN: Mr. Fountain is a 62-year-old male status post left nephroureterectomy with bladd er cuff, removal of left ureteral stent. The patient is doing well postop. He has been aggressively out of bed ambulating without issues. He is encouraged to do so with mechanical DVT prophylaxis and dorsiflexion while in bed. We continue to hold Lovenox due to trending down of his platelets. His epidural can be discontinued today, as I anticipate the patient will most likely be discharged tomorr ow if labs are stable. We will check SHELLIE creatinine before removal. We will contact his medical onco logist, as he does have history of pancytopenia due to neoadjuvant chemotherapy. Overall, doing well .
[2017-07-24] MEDS: Famotidine 40 MG/4 ML VIAL SLOW IVP SCH ×2 (09:36→20:51)
[2017-07-24 14:27] VITALS: BMI 31.4
[2017-07-24] MEDS: HYDROcodone/Acetaminophen 5/325 mg Tablet PO PRN ×2 (15:12→21:44)
[2017-07-24] MEDS: cefTRIAXone\\ROCEPHIN 1 GM, Syringe 0.4 ML in Sterile Water 9.6 ML SLOW IVP SCH (15:12)
[2017-07-24] MEDS: Atorvastatin Calcium 20 MG TAB PO SCH (20:47)
[2017-07-24] MEDS: Allopurinol 100 MG TAB PO SCH (20:47)
[2017-07-25 04:48] LABS: Anion Gap 8 mmol/L (10-20); BUN (Urea Nitrogen) 16 mg/dL (8.4-25.7); Calc. Creatinine Clearance 67 mL/min (70-130); Calcium 9.2 mg/dL (7.8-10.44); Carbon Dioxide 29 mmol/L (23-31); Chloride 104 mmol/L (98-107); Estimated GFR-MDRD 49; Glucose 91 mg/dL (80-115); Potassium 3.4 mmol/L (3.5-5.1); Sodium 138 mmol/L (136-145)
[2017-07-25 04:50] LABS: #Eosinphils 0.2 thou/uL (0.0-0.7); #Lymphocytes 0.9 thou/uL (1.20-3.40); #Monocytes 0.7 thou/uL (0.11-0.59); #Neutrophils 4.3 thou/uL (1.40-6.50); %Basophils 0.2 % (0.0-1.0); %Eosinophils 3.2 % (0.0-10.0); %Lymphocytes 15.3 % (21.0-51.0); %Monocytes 10.8 % (0.0-10.0); %Neutrophils 70.5 % (42.0-75.0); Hemoglobin 9.3 g/dL (14.0-18.0); Mean Corpuscular HGB CONC 34.2 g/dL (32.0-36.0); Mean Corpuscular Hemoglobin 31.6 pg (27.0-31.0); Mean Corpuscular Volume 92.5 fl (80.0-94.0); Mean Platelet Volume 9.5 fL (7.4-10.4); Platelet Count 100 thou/uL (130-400); RBC Distribution Width 14.5 % (11.5-14.5); Red Blood Cell (RBC) Count 2.93 mill/uL (4.70-6.10); White Blood Cell (WBC) Count 6.1 thou/uL (4.8-10.8)
[2017-07-25] MEDS: Famotidine 40 MG/4 ML VIAL SLOW IVP SCH (09:08)
[2017-07-25] MEDS: Carvedilol 25 MG TAB PO SCH (09:09)
[2017-07-25] MEDS: Amlodipine 10 MG TAB PO SCH (09:09)
[2017-07-25] MEDS: Tamsulosin HCl 0.4 MG CAP PO SCH (09:09)
[2017-07-25] MEDS: Docusate 100 MG CAP PO SCH (09:09)
[2017-07-25] MEDS: hydrALAZINE 25 MG TAB PO SCH (09:09)
[2017-07-25] MEDS: HYDROcodone/Acetaminophen 5/325 mg Tablet PO PRN (09:13)
[2017-07-25 12:38] VITALS: BP 119/69; TEMP 98.2
--- NOTE | 2017-07-25 14:18 | DIS ---
DATE OF ADMISSION: 07/21/2017 DATE OF DISCHARGE: 07/25/2017 ADMITTING DIAGNOSES: 1. History of left ureteral transitional cell carcinoma, with lamina propria invasion, squamous differentiation. 2. History of chronic renal insufficiency. DISCHARGE DIAGNOSES: 1. History of left ureteral transitional cell carcinoma, with lamina propria invasion, squamous differentiation 2. History of chronic renal insufficiency 3. Status post left nephroureterectomy with bladder cuff. 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 DISCHARGE DISPOSITION: Home with self-care with good family assist. DISCHARGE MEDICATIONS: Includes ciprofloxacin 250 mg one p.o. b.i.d. for 7 days , [place] 5/325 #50, Flomax refill prescription provided, Colace 100 mg 1 p.o. b.i.d. p.r.n. He may resume his home medications, advised to hold aspirin and ibuprofen products. CONDITION: Stable. FOLLOWUP: follow up appointment next , 07/31/2017 at 2:00 p.m. with cystogram to be obtained morning of the appointment. This has [facility] been [facility]. ACTIVITY: No heavy lifting over 10 pounds, no baths, May shower. BRIEF HOSPITAL COURSE: Mr. Fountain is a pleasant 62-year-old male who presented with left hydronephrosis. Workup for chronic renal insufficiency demonstrated a large left ureteral mass. This was subsequently biopsied with ureteroscopy demonstrating TCC with squamous differentiation. He underwent neoadjuvant chemotherapy, presented this Friday for left nephroureterectomy with bladder cuff, removal of ureteral stent. He did very well postop, as epidural was discontinued yesterday and has had minimal narcotic use for pain management. He had mild ileus, started having gas and bowel movement yesterday and has been tolerating regular diet. His creatinine has been stable at baseline of 1.4, H&H stable. I did monitor his CBC as his platelet counts were trending down; however, this is stable and it is on trending up. SHELLIE is removed prior to discharge , due to minimal output 10 mL since this morning. He will continue his indwelling Duncan catheter until cystogram anticipated to be removed next week. MTDD
--- NOTE | 2017-07-30 10:46 | PQF ---
DAVID JAYZAN DO [id number] SURG A- [id number] CLINICAL DOCUMENTATION CLARIFICATION FORM: POST DISCHARGE Addendum to original discharge summary date: 07/25/2017_ DATE: 07/30/17 ATTN: Dr. Arroyo Please exercise your independent, professional judgment in responding to the clarification form. Clinical indicators are provided on the bottom of this form for your review Please check appropriate box(s): [ ] Ileus is a postoperative complication related to current surgery [ ] Ileus is not a postoperative complication related to current surgery [ ] Other diagnosis (please specify) [ ] Unable to determine In addition, please specify: Present on Admission (POA): [ ] Yes [ ] No [ ] Unable to determine CLINICAL INDICATORS - SIGNS / SYMPTOMS / LABS Per discharge summary: He had mild ileus, started having gas and bowel movements yesterday and has been tolerating regular diet. Per 07/22 progress note: Bowel sounds are present, mildly sluggish. Poor appetite. Will keep the patient on clear liquids. Per 07/23 progress note: Has not yet passed flatus. Slowly advance him to full liquid diet and monitor. RISK FACTORS Cystoscopy, transurethral incision of left ureteral orifice, removal of left ureteral stent, left nephroureterectomy with bladder cuff, partial resection of left twelfth rib on 07/21/17. TREATMENT: Per 07/22 and 07/23 progress notes: Clear liquids with advancement to full liquid diet and monitor. (This form is maintained as a part of the permanent medical record) 2014 [employer], [employer]. All Rights Reserved [email or web address] [phone] MTDD
[2017-08-04 14:46] LABS: Actual Bicarbonate (HCO3a) 23.5 mEq/L (22-26); Base Excess (BEa) -1.3 mEq/L (0 (+/-) 2.5); CO2 Tension 39.8 mmHg (35.0-45.0); Calcium, Ionized 1.2 mmol/L (1.12-1.30); Carboxyhemoglobin (COHb) 1.9 gm% (0.0-3.0); Hematocrit-ABG 32.2 % (42.0-52.0); O2 Tension (PaO2) 101.8 mmHg (80.0-100.0); Potassium - ABG Lab 3.6 mmol/L (3.70-5.30); pH, Arterial 7.39 (7.35-7.45)
[2017-08-04 14:47] LABS: Analyzer IN Cardio OR; Puncture Site ALINE
== END 2017-07-25 13:37 | disposition home or self-care (01) | DRG 657 ==
LOC: SURG A 06:00
PROVIDERS: ADMIT Urology; ATTEND Urology
PROC: 0TT70ZZ Resection of Left Ureter, Open Approach (ICD-10-PCS; principal; 2017-07-21)
PROC: 0TT10ZZ Resection of Left Kidney, Open Approach (ICD-10-PCS; 2017-07-21)
PROC: 0PB10ZZ Excision of 1 to 2 Ribs, Open Approach (ICD-10-PCS; 2017-07-21)
DX: C66.2 Malignant neoplasm of left ureter (principal); K56.7 Ileus, unspecified; N18.3 Chronic kidney disease, stage 3 (moderate); E11.3299 Type 2 diabetes mellitus with mild nonproliferative diabetic retinopathy without macular edema, unspecified eye; I12.9 Hypertensive chronic kidney disease with stage 1 through stage 4 chronic kidney disease, or unspecified chronic kidney disease; E78.5 Hyperlipidemia, unspecified; Z79.82 Long term (current) use of aspirin; Z79.899 Other long term (current) drug therapy
CPT/HCPCS: 36415; 36416; 71045; 80048; 82570; 82805; 85025; 88300; 88307; 88341; 88342; A4216; G8978-GP-CJ; G8979-GP-CJ; G8980-GP-CJ; J0360; J0696; J1580; J1642; J1956; J2001; J2250; J2370; J2405; J2704; J3010; J3490; J7050

== ENCOUNTER 2017-07-31 10:54 | Outpatient (CLI) | payer BC ==
--- NOTE | 2017-07-31 14:03 | RAD ---
CYSTOGRAM: History: Primary transitional cell carcinoma, left ureter. Patient had surgery. This is evaluation fo r bladder integrity. FINDINGS: Contrast was injected under guidance by Dr. Jones with good filling of the bladder. There are no s igns of extravasation. IMPRESSION: Unremarkable post op cystogram. Findings discussed with Dr. Arroyo. POS: [facility]
== END 2017-07-31 10:55 | disposition home or self-care (01) ==
LOC: RAD 10:54
PROVIDERS: ATTEND Urology
DX: C66.2 Malignant neoplasm of left ureter (principal)
CPT/HCPCS: 51600; 74430

== ENCOUNTER 2017-10-17 08:24 | Outpatient (CLI) | payer BC ==
--- NOTE | 2017-10-17 09:25 | RAD ---
TWO VIEWS OF THE CHEST: INDICATION: History of transitional cell carcinoma of the left ureter. COMPARISON: Prior exam dated 07/21/17. FINDINGS: Right chest wall port and loop recorder is stable. Mild cardiomegaly persists. Focal eventration of right hemidiaphragm is similar-appearing. No focal consolidation, pleural effusion, or pneumothorax is evident. IMPRESSION: No acute abnormality. POS: [facility]
== END 2017-10-17 08:25 | disposition home or self-care (01) ==
LOC: RAD 08:24
PROVIDERS: ATTEND Urology
DX: C66.2 Malignant neoplasm of left ureter (principal); N18.3 Chronic kidney disease, stage 3 (moderate); N40.1 Benign prostatic hyperplasia with lower urinary tract symptoms; N28.9 Disorder of kidney and ureter, unspecified
CPT/HCPCS: 36415; 71046; 80053; 81001; 85025; 87086; 88121

== ENCOUNTER 2017-10-27 13:42 | Outpatient (CLI) | payer BC | END 2017-10-27 13:43 | disposition home or self-care (01) | LOC: BICCT 13:42 | PROVIDERS: ATTEND Urology | DX: C64.2 Malignant neoplasm of left kidney, except renal pelvis (principal); N28.9 Disorder of kidney and ureter, unspecified; N18.3 Chronic kidney disease, stage 3 (moderate); Z90.5 Acquired absence of kidney; R19.09 Other intra-abdominal and pelvic swelling, mass and lump; R91.8 Other nonspecific abnormal finding of lung field; I70.90 Unspecified atherosclerosis; N32.9 Bladder disorder, unspecified | CPT/HCPCS: 74176 ==

== ENCOUNTER 2017-11-03 08:48 | Outpatient (CLI) | payer BC ==
--- NOTE | 2017-11-03 11:59 | CT ---
CHEST CT WITHOUT CONTRAST: Date: 11/03/17 COMPARISON: 04/04/17. HISTORY: Squamous cell carcinoma of the left kidney, restaging examination. TECHNIQUE: Serial axial CT imaging is obtained at 5 mm intervals from the lung bases through lung apices without contrast. Coronal reformatted imaging obtained. FINDINGS: The lack of contrast media limits assessment of the imaged viscera, the vascular structures, and for lymphadenopathy. There is a right-sided Port-A-Cath, distal tip extending into the region of the cavo atrial junction. Loop recorder noted within the subcutaneous soft tissues of the left chest wall. Limited assessment of the chest for lymphadenopathy appears unremarkable. There is no pleural, perica rdial, or mediastinal fluid seen. There is extensive atherosclerotic calcification of the coronary ar teries. There is scattered atherosclerotic calcification of the aorta. The imaged upper abdomen demonstrates no acute findings. There is mild [id number] density within the subcutaneous fat in the posterior left flank region, likely associated with prior surgery. There are numerous nodules within the left lower lobe, the vast majority of which are new when compar ed to the 04/04/17 exam. This includes a 6.0 mm nodule on image 15, a 7.0 mm nodule on image 36, and an 8.0 mm nodule on image 44. Multiple additional smaller left lower lobe pulmonary nodules in the 3. 0 mm range noted. No discrete pulmonary nodule noted in left upper lobe. There is a pulmonary nodule in the right upper lobe on image 14 measuring 7-8 mm, new. Additional sma ller, subcentimeter, new right upper lobe pulmonary nodule noted on image 15 and imag4e 19. No discre te right middle lobe pulmonary nodule noted. New subpleural nodule noted in right lower lobe on image 45 measuring 6.0 mm. There is also a 5.0 mm new pulmonary nodule noted posteriorly within the right lower lobe on image 30. There are scattered pulmonary parenchymal cysts noted bilaterally, similar when compared to prior exa mination. Review of the osseous structures demonstrates no discrete worrisome lytic or blastic lesion. IMPRESSION: 1. There are multiple new bilateral subcentimeter noncalcified pulmonary nodules, concerning for int erval development of metastatic disease. 2. Prominent coronary arterial calcification. CODE T. POS: [facility]
--- NOTE | 2017-11-03 15:07 | NM ---
NUCLEAR MEDICINE BONE SCAN WHOLE BODY: (SKELETAL SCINTIGRAPHY) HISTORY: Cancer of the left kidney. 11/03/2017 TECHNIQUE: IV injection of [id number]: 30.1 millicuries. 3 hour delayed whole body skeletal scintigraphy in anterior and posterior views. FINDINGS: There are no foci of asymmetrically increased uptake that are particularly suspicious for bone metast ases. There is absence of left renal activity. IMPRESSION: 1. No compelling evidence of skeletal metastasis. 2. Status post left nephrectomy. JN Shaista POS: [facility]
== END 2017-11-03 08:49 | disposition home or self-care (01) ==
LOC: CT 08:48
PROVIDERS: ATTEND Urology
DX: Z01.818 Encounter for other preprocedural examination (principal); C64.2 Malignant neoplasm of left kidney, except renal pelvis; R91.8 Other nonspecific abnormal finding of lung field; I25.10 Atherosclerotic heart disease of native coronary artery without angina pectoris; Z90.5 Acquired absence of kidney
CPT/HCPCS: 71250; 78306; 87086; 93005; 93010; A9503

== ENCOUNTER 2017-11-03 14:45 | Outpatient (CLI) | payer BC ==
[2017-11-03 15:02] LABS: Bilirubin Negative (Negative); Blood, Urine Negative (Negative); Clarity CLEAR (Clear); Glucose, Urine (Dipstick) Negative (Negative); Leukocyte Negative (Negative); Mean Corpuscular HGB CONC 33.1 g/dL (32.0-36.0); Mean Corpuscular Hemoglobin 29.8 pg (27.0-31.0); Mean Corpuscular Volume 89.8 fL (78.0-98.0); Mean Platelet Volume 9.2 fL (7.4-10.4); Nitrite Negative (Negative); Platelet Count 105 thou/uL (130-400); Protein, Urine (Dipstick) Negative (Neg-Trace); RBC Distribution Width 12.6 % (11.5-14.5); Red Blood Cell (RBC) Count 4.37 mill/uL (4.70-6.10); Specific Gravity, Urine 1.008 (1.002-1.036); Urobilinogen 0.2 mg/dL (0.2-1.0); pH, Urine 6.5 (5.0-9.0)
[2017-11-03 15:07] LABS: Bacteria/HPF None Seen HPF (None Seen); Hyaline Casts/LPF 0-3 HYALINE CAST LPF (0-3 Hyaline); RBC/HPF 0-3 HPF (0-3); Squamous Epithelial None Seen HPF (0-3); WBC/HPF 0-3 HPF (0-3)
[2017-11-03 15:08] LABS: PTT 33.7 SEC (22.9-36.1)
[2017-11-03 15:18] LABS: Prothrombin Time 12.8 SEC (12.0-14.7)
[2017-11-03 15:30] LABS: Anion Gap 13 mmol/L (10-20); BUN (Urea Nitrogen) 31 mg/dL (8.4-25.7); Calc. Creatinine Clearance 0 mL/min (70-130); Calcium 9.3 mg/dL (7.8-10.44); Carbon Dioxide 24 mmol/L (23-31); Chloride 107 mmol/L (98-107); Estimated GFR-MDRD 40; Glucose 96 mg/dL (80-115); Potassium 4.9 mmol/L (3.5-5.1); Sodium 139 mmol/L (136-145)
--- NOTE | 2017-11-03 22:41 | EKG ---
Test Reason : Blood Pressure : / mmHG Vent. Rate : 071 BPM Atrial Rate : 071 BPM P-R Int : 150 ms QRS Dur : 088 ms QT Int : 368 ms P-R-T Axes : 046 028 027 degrees QTc Int : 399 ms Normal sinus rhythm Normal ECG When compared with ECG of 14-JUL-2017 08:11, No significant change was found Confirmed by Otis RAMIREZ ([id number]) on 11/03/2017 10:40:55 PM Referred By: DANIEL Confirmed By:Otis RAMIREZ
== END 2017-11-03 14:46 | disposition home or self-care (01) ==
LOC: LABBT 14:45
PROVIDERS: ATTEND Urology
DX: Z01.818 Encounter for other preprocedural examination (principal); C66.2 Malignant neoplasm of left ureter; C79.89 Secondary malignant neoplasm of other specified sites
CPT/HCPCS: 87086; 93005; 93010

== ENCOUNTER 2017-11-06 08:53 | Outpatient (CLI) | payer BC | END 2017-11-06 08:54 | disposition home or self-care (01) | LOC: LABBT 08:53 | PROVIDERS: ATTEND Urology | DX: Z01.812 Encounter for preprocedural laboratory examination (principal); C64.2 Malignant neoplasm of left kidney, except renal pelvis | CPT/HCPCS: 86850; 86900; 86901 ==

== ENCOUNTER 2017-11-12 07:57 | Day surgery (SDC) | payer BC ==
[2017-11-03 14:02] VITALS: BMI 32.4
[2017-11-12] MEDS ORDERED: Levofloxacin 500 mg/D5W 100 ml Premix Bag ONE (08:38)
[2017-11-12] MEDS ORDERED: Fentanyl 100 MCG/2 ML VIAL ONE (10:12)
[2017-11-12] MEDS ORDERED: Phenazopyridine HCl 97.5 MG TABLET ONE ×2 (11:33)
[2017-11-12] MEDS ORDERED: Oxybutynin 5 MG TAB ONE (11:33)
[2017-11-12] MEDS ORDERED: Ondansetron PF 4 MG/2 ML Vial ONE (13:16)
[2017-11-12] MEDS ORDERED: Glycopyrrolate 0.2 MG/ML 5 ML SYRINGE ONE (13:16)
[2017-11-12] MEDS ORDERED: ePHEDrine/0.9% NaCl/PF SYRINGE 50 mg/10 ml ONE (13:16)
[2017-11-12] MEDS ORDERED: Lidocaine 1% PF 5 ML VIAL ONE (13:16)
[2017-11-12] MEDS ORDERED: PROPOFOL 200 MG/20 ML VIAL ONE (13:16)
--- NOTE | 2017-11-12 14:27 | OP ---
DATE OF OPERATION: 11/12/2017 PREOPERATIVE DIAGNOSES: 1. A 62-year-old male with history of pathologic T3 squamous cell carcinoma of the left ureter renal pelvis, status post left nephroureterectomy with bladder cuff. 2. Chronic renal insufficiency. 3. Recent staging CT demonstrating retroperitoneal metastatic recurrence. 4. Recent cystoscopy demonstrating nonspecific 4-5 mm granulomatous lesion of the left lateral wall near the bladder neck. POSTOPERATIVE DIAGNOSES: 1. A 62-year-old male with history of pathologic T3a squamous cell carcinoma of the left ureter renal pelvis, status post left nephroureterectomy with bladder cuff. 2. Chronic renal insufficiency. 3. Recent staging CT demonstrating retroperitoneal metastatic recurrence. 4. Recent cystoscopy demonstrating nonspecific 4-5 mm granulomatous lesion of the left lateral wall near the bladder neck. PROCEDURES PERFORMED: Cystoscopy, bladder biopsy, TUR + fulguration of biopsy site. SURGEON: Shannon Arroyo D.O. ANESTHESIA: General. COMPLICATIONS: None apparent. DISPOSITION: To the recovery room in stable condition. DRAINS: A 22-Lithuanian three-way Duncan catheter with 30 mL connected to a gravity leg bag. CBI port plugged. SPECIMEN: Bladder biopsy. ESTIMATED BLOOD LOSS: Minimal. INDICATIONS FOR THE PROCEDURE AND HISTORY: Mr. Fountain is a pleasant 62-year- old male with history of chronic renal insufficiency, found to have severe left hydroureteronephrosis. He was found to have a large left ureteral mass and underwent left nephroureterectomy with bladder cuff, status post neoadjuvant chemotherapy. Final pathology unfortunately demonstrates high-grade squamous cell carcinoma of the left ureter renal pelvis. Recent CT workup demonstrates retroperitoneal metastatic recurrence. He underwent surveillance cystoscopy locally, this demonstrated a nonspecific granulomatous lesion at the left bladder neck region. This was inapproachable with a flexible cystoscope and local biopsy. Therefore, he presents today for exam under anesthesia. The patient has been referred to [facility] by Dr. Davis, appointment is yet pending and they desired to proceed with further workup with me. Risks and complications and indications for the procedure was reviewed with the patient in detail including, but not limited to, bleeding, pain, infection, injury to adjacent organs, urosepsis, and ureteral bladder injury. All questions answered to satisfaction and he desired to proceed. DESCRIPTION OF THE PROCEDURE: After an informed consent is signed, the patient is taken to the operating room, placed in a dorsal lithotomy position with the genital area prepped and draped in the usual surgical sterile fashion. Broad- spectrum antibiotics were provided. Bilateral ISABEL hose, SCDs placed. A 21- Lithuanian cystoscope was utilized for cystoscopy which demonstrated normal anterior and posterior urethra. Prostatic urethra demonstrated mild BPH component. Upon entering the bladder, again we inspected the bladder with a 30 and a 70 degree lens. The right UO demonstrated clear output of urine. The left UO was surgically absent. There is some nonspecific minimal bullous edema of the left bladder neck region adjacent to a granulomatous lesion. The lesion measured approximately 4-5 mm very close to the bladder neck. I used an endoscopic biopsy which was utilized to remove intact. Even though the lesion is quite small and appeared to have a significant arterial supply. We did transition to a gyrus resectoscope. Using a bladder loop, we cauterized the bed of the lesion with good hemostasis. There was an arterial source applying the lesion and this was fulgurated with good hemostasis. I did resect tissue adjacent to it, suspicion is very low. It appeared to have normal bladder mucosa. Biopsy was sent. We did inspect the bladder demonstrating mild oozing from the prostatic urethra. We again inspected the area of the biopsy demonstrating good hemostasis. A 22-Lithuanian 30 mL three-way Duncan catheter was placed with CBI port plugged. He will follow up with me sometime next week to review pathology. He is discharged with [place] 5/325, ciprofloxacin until followup appointment, Colace p.o. b.i.d. p.r.n. He is to resume Flomax. BIBI
== END 2017-11-12 13:05 | disposition home or self-care (01) ==
LOC: SDC 07:57
PROVIDERS: ATTEND Urology
PROC: 0TBB8ZX Excision of Bladder, Via Natural or Artificial Opening Endoscopic, Diagnostic (ICD-10-PCS; principal; 2017-11-12)
DX: N30.90 Cystitis, unspecified without hematuria (principal); E78.5 Hyperlipidemia, unspecified; I12.9 Hypertensive chronic kidney disease with stage 1 through stage 4 chronic kidney disease, or unspecified chronic kidney disease; E11.22 Type 2 diabetes mellitus with diabetic chronic kidney disease; N18.3 Chronic kidney disease, stage 3 (moderate); E66.9 Obesity, unspecified; N40.1 Benign prostatic hyperplasia with lower urinary tract symptoms; M10.9 Gout, unspecified; Z79.82 Long term (current) use of aspirin; Z79.899 Other long term (current) drug therapy; Z68.32 Body mass index [BMI] 32.0-32.9, adult
CPT/HCPCS: 88305; C1758; C1769; J1956; J2001; J2405; J2704; J3010

== ENCOUNTER 2018-01-29 15:06 | Outpatient (CLI) | payer BC ==
--- NOTE | 2018-01-29 17:49 | ULT ---
LEFT LOWER EXTREMITY VENOUS DOPPLER ULTRASOUND: 01/29/18 COMPARISON: None. HISTORY: Edema, swelling, pain. Assess for DVT. TECHNIQUE: Multiplanar elise scale sonographic imaging of the venous structures of the left lower extremity obtai sharan with color flow and spectral analysis. FINDINGS: The femoral vein and common femoral vein appear patent with normal compression and blood flow. The le ft greater saphenous vein appears patent as well. However, the profunda femoral vein is noncompressib le, consistent with DVT. There is also extensive noncompressible nature of the left popliteal vein wi th DVT noted within the popliteal vein on elise scale imaging. The posterior tibial vein on the left is noncompressible, consistent with clot as well. IMPRESSION: There is extensive deep venous thrombosis of the left lower extremity involving the profunda femoral vein and the popliteal vein with extension into the posterior tibial veins. Results were relayed by rosalind whipple performing ship's master to Dr. Davis at 3:40 p.m., 01/29/18. Code CR POS: [facility]
== END 2018-01-29 15:07 | disposition home or self-care (01) ==
LOC: ULT 15:06
PROVIDERS: ATTEND Internal Medicine Medical Oncology
DX: M79.605 Pain in left leg (principal); R60.0 Localized edema; C65.2 Malignant neoplasm of left renal pelvis; C66.2 Malignant neoplasm of left ureter; I82.412 Acute embolism and thrombosis of left femoral vein; I82.432 Acute embolism and thrombosis of left popliteal vein; I82.442 Acute embolism and thrombosis of left tibial vein
CPT/HCPCS: 36415; 80053; 82248; 83615; 84100; 84550; 85610; 85730

== ENCOUNTER 2018-02-19 13:59 | Inpatient (IN) | payer BC ==
[2018-02-19] MEDS ORDERED: ISOVUE-370 76%-LOCM 1 ML ONE (14:11)
[2018-02-19 14:41] LABS: #Lymphocytes 0.4 thou/uL (1.20-3.40); #Monocytes 0.3 thou/uL (0.11-0.59); #Neutrophils 14.8 thou/uL (1.40-6.50); %Eosinophils 0.1 % (0.0-10.0); %Lymphocytes 2.8 % (21.0-51.0); %Monocytes 1.7 % (0.0-10.0); %Neutrophils 95.5 % (42.0-75.0); Hemoglobin 10.8 g/dL (14.0-18.0); Mean Corpuscular HGB CONC 30.9 g/dL (32.0-36.0); Mean Corpuscular Hemoglobin 26.4 pg (27.0-31.0); Mean Corpuscular Volume 85.2 fL (78.0-98.0); Mean Platelet Volume 10.6 fL (7.4-10.4); Platelet Count 107 thou/uL (130-400); RBC Distribution Width 15.8 % (11.5-14.5); Red Blood Cell (RBC) Count 4.09 mill/uL (4.70-6.10); White Blood Cell (WBC) Count 15.5 thou/uL (4.8-10.8)
[2018-02-19 14:59] LABS: ALT (SGPT) 31 U/L (8-55); AST (SGOT) 60 U/L (5-34); Alkaline Phosphatase 128 U/L (40-150); Anion Gap 10 mmol/L (10-20); BUN (Urea Nitrogen) 43 mg/dL (8.4-25.7); Bilirubin, Total 0.9 mg/dL (0.2-1.2); Calc. Creatinine Clearance 0 mL/min (70-130); Calcium 11.5 mg/dL (7.8-10.44); Carbon Dioxide 22 mmol/L (23-31); Chloride 108 mmol/L (98-107); Estimated GFR-MDRD 49; Globulin 4.8 g/dL (2.4-3.5); Glucose 110 mg/dL (80-115); Potassium 4.1 mmol/L (3.5-5.1); Protein, Total 6.8 g/dL (5.8-8.1); Sodium 136 mmol/L (136-145)
[2018-02-19 15:04] LABS: Troponin I 0.135 ng/mL (< 0.028)
--- NOTE | 2018-02-19 16:37 | CT ---
CTA CHEST WITH CONTRAST: 02/19/18 Multiple axial tomograms obtained through the chest with IV enhancement following a pulmonary angio p rotocol with multiplanar reconstructions and 3D post processing. INDICATIONS: Syncope. Renal cancer. Comparison made to a recent chest CT of 11/03/17. That exam revealed numerous small pulmonary nodules which are subcentimeter. Early metastatic disease to the lungs is suspected. FINDINGS: On today's exam there is a large linear filling defect consistent with thrombus involving the main pu lmonary artery extending into both right and left pulmonary artery trunks. Thrombus extends into both upper lobe pulmonary arteries and into the descending left main pulmonary artery. Loculated pleural fluid is seen bilaterally with moderate sized left effusion. There are now numerous pulmonary jessenia s which have significantly enlarged and increased in number when compared to the prior exam indicat ing progression of lung metastatic disease. Mediastinal adenopathy is prominent. Images through the upper abdomen reveal abnormal lesions involving the liver which appeared new and w ould be consistent with metastatic disease to the liver. These lesions are too numerous to count. IMPRESSION: 1. Bilateral pulmonary emboli as described above. 2. Progression of pulmonary metastatic disease with numerous enlarging pulmonary nodules since p rior exam. There is associated mediastinal and hilar adenopathy. Bilateral pleural effusions which appear loculated. 3. Diffuse metastatic disease to the liver is now noted. 4. Findings relayed to Dr. Nugent at time of dictation. POS: [facility]
[2018-02-19] MEDS ORDERED: Piperacillin/Tazobactam 4.5 GM VIAL ONE (17:05)
[2018-02-19 17:40] LABS: Prothrombin Time 40.5 SEC (12.0-14.7)
[2018-02-19] MEDS ORDERED: Acetaminophen 650 MG Suppository PR PRN (17:40)
[2018-02-19] MEDS ORDERED: CCU Electrolyte Replacement 1 EACH IVPB SCH (17:40)
[2018-02-19] MEDS ORDERED: Bisacodyl 5 MG TAB PO PRN (17:40)
[2018-02-19] MEDS ORDERED: Enoxaparin Sodium 100 MG/ML SYRINGE ONE (17:45)
[2018-02-19] MEDS ORDERED: Heparin 25,000 units/D5W 500 ML IVPB SCH (17:45)
[2018-02-19] MEDS ORDERED: Heparin 1,000 UNITS/ML VIAL ONE (17:45)
[2018-02-19] MEDS ORDERED: Heparin 10,000 UNITS/ 10 ML VIAL SLOW IVP SCH (17:45)
[2018-02-19] MEDS ORDERED: Heparin 25,000 units/D5W 500 ML ONE (17:45)
[2018-02-19] MEDS ORDERED: Enoxaparin Sodium 40 MG/0.4 ML SYRINGE ONE (17:46)
[2018-02-19 17:47] LABS: INR-International Normal Ratio 4.2
[2018-02-19] MEDS ORDERED: Dextrose 50% Abboject 50 ML SYRINGE SLOW IVP PRN (18:00)
[2018-02-19] MEDS ORDERED: HumaLOG 300 UNITS/3 ML VIAL SC PRN (18:00)
[2018-02-19] MEDS ORDERED: Dextrose 5% in Water 1,000 ML IV PRN (18:00)
[2018-02-19] MEDS ORDERED: Azithromycin 500 MG VIAL ONE (18:02)
[2018-02-19] MEDS ORDERED: Potassium Chloride 40 MEQ in Premix Bag 1 BAG IVPB PRN (18:23)
[2018-02-19] MEDS ORDERED: Potassium Phosphate 12 MMOL in Sodium Chloride 0.9% 250 ML 250 ML IV PRN (18:23)
[2018-02-19] MEDS ORDERED: Potassium Phosphate 15 MMOL in Sodium Chloride 0.9% 250 ML 250 ML IV PRN (18:23)
[2018-02-19] MEDS ORDERED: Magnesium Oxide 400 MG TAB PO PRN ×2 (18:23)
[2018-02-19] MEDS ORDERED: Potassium Phosphate 9 MMOL in Sodium Chloride 0.9% 100 ML IVPB PRN (18:23)
[2018-02-19] MEDS ORDERED: CCU ELECTROLYTE REPLACEMENT PROTOCOL FS PRN (18:23)
[2018-02-19] MEDS ORDERED: Potassium Chloride 20 MEQ TAB PO PRN (18:23)
[2018-02-19] MEDS ORDERED: Potassium Chloride 40 MEQ in Sodium Chloride 0.9% 250 ML 250 ML IVPB PRN (18:23)
[2018-02-19] MEDS ORDERED: Magnesium 2 GM/NS 0.9% 100 ML 2 GM in Premix Bag 1 BAG IVPB PRN (18:23)
[2018-02-19 18:24] LABS: Troponin I 0.104 ng/mL (< 0.028)
[2018-02-19 19:03] LABS: Hemoglobin 9.7 g/dL (14.0-18.0); Platelet Count 97 thou/uL (130-400)
--- NOTE | 2018-02-19 20:32 | HP ---
CHIEF COMPLAINT: Syncope. HISTORY OF PRESENT ILLNESS: The patient is a very pleasant 63-year-old male with a history of transi tional cell carcinoma of the left ureter with metastatic disease to the liver and to the lung who pre sents to the hospital from Dr. Davis's office after having a syncopal episode. After talking to t sarabjit patient, the patient stated that since Friday, he has not been feeling well. The patient normally goes to [facility] every Friday; however, the Friday he did not go to latter-day since he was feeling dizzy and from Friday to today, he has had 2 falls. The patient denies losing of any consciousness at that time. However, today when he was at Dr. Davis's office to get his chemo infusion, the patient wa s found to be hypotensive. At this time, he was given 2 liters of normal saline with some minimal ch amie in his blood pressure. Patient then wanted to go to the bathroom; however, when he was taken to the bathroom on a wheelchair, the patient had a syncopal episode while he was sitting on the chair. According to the patient's sister who is at the bedside, she stated that he completely passed out wh ich lasted about 30 seconds. There was no mention of any shakiness or tongue biting. At this time, the patient was transferred to the ER for further evaluation. On ER evaluation, the patient was foun d to be hypotensive and blood pressures in the 97/60. MAPS were barely around 65-68. Patient christian lind denies any chest pain or shortness of breath; however, he is on 6 liters of nasal cannula, sattin g about 90%, normally does not use oxygen at all. Patient recently had a DVT which was diagnosed in January 29, 2018, left lower extremity significant DVT. Patient was put on Xarelto and he has been t aking Xarelto twice a day, took his a.m. dose this morning. PAST MEDICAL HISTORY: His past medical history is as the following: History of benign prostatic hyp ertrophy, history of CVA last year, hypertension, he had a CVA to the REVENUE LIAISON distribution, diabetes type 2, obesity, hyperlipidemia, history of gout, and also has a history of transitional cell carcinoma o f the left ureter. 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 Medtro ela loop event recorder 10/17/2016, cystoscopy with left retrograde stent with stool in situ, uretero scopy and ureteral biopsy, MediPort placement in 2018, cystoscopy, bladder tumor on 07/10/2017. He had a cystoscopy also of the right ureter again on 10/22. FAMILY HISTORY: Father , diagnosed with diabetes, hypertension, and heart disease. Mother e sophageal cancer. Siblings and brothers had colon polyp. SOCIAL HISTORY: He is a nonsmoker, does not drink. No alcohol. He is currently , lives with his spouse. Occupation: He is a router operator. His medications are as of the following, this is gained from the chart. The patient does not have a list. He is on hydralazine 100 mg 3 times a day, carvedilol 12.5 twice a day, amlodipine 10 mg daily . He is on allopurinol 100 mg 2 tabs once a day, Flomax 0.4 mg daily, atorvastatin 20 mg daily, aspi rin 325 daily, and Colace 1 b.i.d. p.r.n. REVIEW OF SYSTEMS: All negative except for the ones mentioned above in the HPI. LABORATORY RESULTS: As of the following, his INR is 4.2, PTT is 72.0. WBC 15.5, hemoglobin of 10.8, hematocrit of 34.8. His platelets are 107. Chemistry: Sodium of 136, potassium of 4.1, BUN of 43, creatinine of 1.44. His calcium is 11.5. AST is 60. His troponin is mildly elevated at 0.135. Gurdeep melvin did have a CTA of the chest which indicated he has bilateral pulmonary embolism, also has metas tatic lung disease. He also has metastatic hilar adenopathy and bilateral loculated effusions are no karine. His thrombus involves the main pulmonary artery extending into both the right and left pulmonar y artery trunks. ASSESSMENT AND PLAN: The patient is a very pleasant 63-year-old male who presents to the hospital wi . 1. Acute pulmonary embolism. Hemodynamically unstable. Patient's blood pressure is very minimal. He has received 2 liters of normal saline. We will start him on some fluids. Also, I did speak with granite installer for possible TPA candidate; however, the patient took his Xarelto earlier today which is a contraindication. We will also get a CTA of brain. We will start patient on Lovenox at a full do se and also start him on heparin. His INR is elevated; however, I do not think this is accurate. Mo st likely, this could be secondary to his underlying liver metastasis. He does have mildly elevated AST and he does have cancer, so I believe this is not therapeutic INR. We will start him on Lovenox and also start him on heparin. We will keep TPA close by just in case if patient needs this down the road. I have talked to the patient and the patient's sister who is at the bedside in regard to how significantly ill he is. The patient still continues and wants to be FULL CODE from now. Again, the patient is very critically ill. 2. Mildly elevated leukocytosis. We will put the patient on Zosyn; however, I do not think there is an underlying infection, but we will just put him on antibiotics for now because the patient did men tion some loculated effusions. We will continue to monitor. 3. Acute hypoxic or hypoxemic respiratory failure. He is not on any oxygen. This is most likely se condary to his pulmonary embolism. 4. Hypotension. Again, this is most likely secondary to pulmonary embolism. Most likely, he does h ave RV straining and echocardiogram has been ordered. He does have mildly elevated troponins. 5. Transitional cell carcinoma. Again, the patient is aware that he does have metastatic disease to his lung; however, he was not aware that he had some liver lesions also which I have notified the gurdeep charles. The patient is very critically ill and I have discussed this with the granite installer and I have discusse d with the patient's family and patient about his overall medical condition.
[2018-02-19 20:40] VITALS: BMI 30.9
[2018-02-19] MEDS: Sodium Chloride 0.9% 1,000 ML IV SCH (21:06)
[2018-02-19 21:21] LABS: Troponin I 0.108 ng/mL (< 0.028)
[2018-02-20] MEDS: Piperacillin/Tazobactam 3.375 GM in Sodium Chloride 0.9% 100 ML IVPB SCH ×5 (00:03→23:34)
[2018-02-20 00:42] LABS: PTT Greater than 250.0 SEC (22.9-36.1)
[2018-02-20 03:25] LABS: Band 25 % (5-11); Hemoglobin 10.1 g/dL (14.0-18.0); Lymphocytes 2 % (21-51); MDiff Complete? YES; Mean Corpuscular HGB CONC 31.1 g/dL (32.0-36.0); Mean Corpuscular Hemoglobin 26.6 pg (27.0-31.0); Mean Corpuscular Volume 85.8 fL (78.0-98.0); Mean Platelet Volume 10.2 fL (7.4-10.4); Monocytes 3 % (0-10); Neutrophil 70 % (42-75); PLT Morphology Comment Appears Decreased; PTT 178.4 SEC (22.9-36.1); Platelet Count 97 thou/uL (130-400); RBC Distribution Width 15.6 % (11.5-14.5); White Blood Cell (WBC) Count 13.9 thou/uL (4.8-10.8)
[2018-02-20 04:10] LABS: ALT (SGPT) 31 U/L (8-55); AST (SGOT) 54 U/L (5-34); Albumin 1.9 g/dL (3.4-4.8); Alkaline Phosphatase 118 U/L (40-150); Anion Gap 10 mmol/L (10-20); BUN (Urea Nitrogen) 42 mg/dL (8.4-25.7); Bilirubin, Total 0.9 mg/dL (0.2-1.2); Calc. Creatinine Clearance 61 mL/min (70-130); Calcium 11.4 mg/dL (7.8-10.44); Carbon Dioxide 23 mmol/L (23-31); Chloride 111 mmol/L (98-107); Estimated GFR-MDRD 46; Globulin 4.6 g/dL (2.4-3.5); Glucose 121 mg/dL (80-115); Potassium 4.1 mmol/L (3.5-5.1); Protein, Total 6.5 g/dL (5.8-8.1); Sodium 140 mmol/L (136-145)
[2018-02-20] MEDS ORDERED: Prevnar 13-Val Conj/PF 0.5 ML SYRINGE IM ONE (09:00)
--- NOTE | 2018-02-20 10:04 | CON ---
DATE OF CONSULTATION: 02/20/2018 SERVICE: Pulmonary Medicine REASON FOR CONSULTATION: ICU patient. HISTORY OF PRESENT ILLNESS: The patient is a 63-year-old male with past medical history significant for widely metastatic transitional cell carcinoma. He was in his usual state of health when he started having increasing shortness of breath, and syncopal and presyncopal episodes, and increasing lethargy. [facility] He stood up and had a syncopal event and was subsequently brought here. He was discovered to be hypoxemic, and his blood pressures were marginal at best. He was on Xarelto because of a known DVT that was diagnosed in 01/2018. His last dose was Friday morning. It was a 15 mg dose because he was on his low period. PAST MEDICAL HISTORY: 1. History of cerebrovascular accident with greater than 1 year ago. 2. Hypertension. 3. Benign prostatic hypertrophy. 4. Type 2 diabetes mellitus. 5. Dyslipidemia. 6. Obesity. 7. Gout. 8. Transition cell carcinoma, widely metastatic. PAST SURGICAL HISTORY: 1. Right eye tumor removed at age 11. 2. Loop event placement in 10/2016. 3. Cystoscopy with retrograde stent. 4. Ureteral biopsy. 5. MediPort placement. 6. Cystoscopy with resection of bladder tumor. FAMILY HISTORY: Noncontributory. SOCIAL HISTORY: He does not use any alcohol or tobacco. He denies any illicit drugs. He has no exposure to chemicals, dust, asbestos or tuberculosis. He drives for a living. ALLERGIES: No known drug allergies. MEDICATIONS: List of his inpatient medications were reviewed. No specific updates were made at this time. REVIEW OF SYSTEMS: General, head, ears, eyes, nose, throat, cardiovascular, respiratory, GI, , musculoskeletal, neurologic and skin is negative except as mentioned in the HPI. PHYSICAL EXAMINATION: VITAL SIGNS: Afebrile, pulse 97, blood pressure 122/69, respirations 16, saturation 91% on 3 liters nasal cannula. GENERAL: The patient is awake, alert, no apparent distress. LUNGS: Excellent air entry. There is no prolonged expiratory phase. I do not appreciate any wheezing, rhonchi, or crackles. HEART: Normal rate, regular. ABDOMEN: Soft, nontender, nondistended. Bowel sounds are positive. MUSCULOSKELETAL: No cyanosis or clubbing. There is 1-2+ pitting in the left lower extremity. No pitting in the right lower extremity. GENITOURINARY: No Duncan. NEUROLOGIC: Grossly nonfocal. LABORATORY DATA: WBC 13.9, hemoglobin 10.1, platelets 97,000. Band count is 25 %. INR 4.2, PTT 96. Troponin is stable to slightly up trending at 0.108. Creatinine 1.54, which is at his baseline. Basic metabolic profile is otherwise unremarkable. IMAGING: CTA of the chest demonstrates extensive bilateral pulmonary emboli including a saddle embolus. There are bilateral pleural effusions, and evidence of metastatic disease throughout the lung. There is no significant reflux of contrast into the inferior vena cava. The right ventricle is generous in size. That being said, it does not appear to cause any compression of the left ventricle. Atelectasis is present in the left lower lobe. ASSESSMENT: 1. Acute hypoxic respiratory failure. 2. Acute pulmonary embolism. 3. Syncope. 4. Transition cell carcinoma, widely metastatic. 5. Chronic kidney disease. 6. Non-ST elevation myocardial infarction, DISCUSSION AND PLAN: I will get a BNP this morning, and tomorrow morning. I will also repeat a troponin. If it appears that the troponin or the BNP are up trending, we can certainly consider him for t-PA in the future. At this point, however, because of his absolute contraindication to t-PA (Xarelto), we are stuck with giving him anticoagulation and nothing more. We placed a vial of t- PA at bedside just in case the patient has a coding event. If that occurs, we will initiate the code and give him the t-PA as quickly as possible. Thankfully ; however, overnight the patient's oxygen requirements have gently improved, and his blood pressures have firmed up very nicely. I will continue his empiric antibiotics for the time being. If he fails to clear his sepsis profile , thoracentesis may be indicated in a couple of days. Pulmonary Critical Care will continue to follow along for now. I would like for him to remain in the ICU until his right heart strain is clearly improving. 70 minutes have been devoted to this patient in various activities. I personally reviewed all imaging studies and laboratory data noted within this document. For fifty percent of this time, I was interacting with the patient at the bedside or coordinating care with the care team. For the remainder of the time I was immediately available to the patient in the hospital unit. BIBI
[2018-02-20] MEDS: Sodium Chloride 0.45% 1,000 ML IV SCH (10:27)
--- NOTE | 2018-02-20 12:11 | PDOC.PN ---
- Subjective Encounter Start Date: 02/20/18 Encounter Start Time: 08:40 Subjective: awake, no sob or chest pain -: feels better - Objective MAR Reviewed: Yes Vital Signs & Weight: Vital Signs (12 hours) Temp Pulse Ox 02/20/18 08:00 95 02/20/18 07:25 97 02/20/18 07:00 97.6 F 02/20/18 04:00 98.1 F Weight Weight 197 lb 1.6 oz Most Recent Monitor Data Heart Rate from ECG 81 NIBP 122/68 NIBP BP-Mean 86 Respiration from ECG 26 SpO2 94 I&O: 02/19/18 02/20/18 02/21/18 06:59 06:59 06:59 Intake Total 907 400 Output Total 4 0 Balance 903 400 Result Diagrams: 02/20/18 02:59 02/20/18 02:59 Phys Exam - Physical Examination HEENT: PERRLA, sclera anicteric Neck: no JVD, supple Respiratory: no wheezing, no rales Cardiovascular: RRR, no significant murmur Gastrointestinal: soft, no distention, positive bowel sounds Musculoskeletal: no edema, pulses present Neurological: non-focal, moves all 4 limbs Dx/Plan (1) Pulmonary embolism Code(s): I26.99 - OTHER PULMONARY EMBOLISM WITHOUT ACUTE COR PULMONALE Status : Acute Qualifiers: Pulmonary embolism type: saddle Chronicity: acute Acute cor pulmonale presence: without acute cor pulmonale Qualified Code(s): I26.92 - Saddle embolus of pulmonary artery without acute cor pulmonale (2) Transitional cell carcinoma Code(s): C68.9 - MALIGNANT NEOPLASM OF URINARY ORGAN, UNSPECIFIED Status: Chronic Comment: with multiple mets to liver and lungs (3) Multiple lesions of metastatic malignancy Code(s): C79.9 - SECONDARY MALIGNANT NEOPLASM OF UNSPECIFIED SITE Status: Chronic (4) Syncope Code(s): R55 - SYNCOPE AND COLLAPSE Status: Acute Comment: sec to PE (5) severe hypoalbuminemia Status: Chronic (6) Diabetes mellitus Code(s): E11.9 - TYPE 2 DIABETES MELLITUS WITHOUT COMPLICATIONS Status: Chronic Qualifiers: Diabetes mellitus type: type 2 Diabetes mellitus intermediate accountant insulin use: without intermediate use Diabetes mellitus complication status: with unspecified complications Qualified Code(s): E11.8 - Type 2 diabetes mellitus with unspecified complications (7) Hyperlipidemia Code(s): E78.5 - HYPERLIPIDEMIA, UNSPECIFIED Status: Chronic Qualifiers: Hyperlipidemia type: unspecified Qualified Code(s): E78.5 - Hyperlipidemia , unspecified - Plan is on heparin drip -: xarelto failure -: poor prognosis with multiple mets from urothelial cancer -: d/w . Code status d/w patient, wants to be full code -: echo results noted * . Review of Systems - Medications/Allergies Allergies/Adverse Reactions: Allergies Allergy/AdvReac Type Severity Reaction Status Date / Time No Known Allergies Allergy Verified 03/17/17 10:56 Medications: Current Medications Acetaminophen (Tylenol) 650 mg [place] Q6H PRN PRN Reason: Fever > 101 or Mild Pain 1-3 Alteplase, Recombinant (Activase) 0 mg IVP WILLCALL ADAMARIS Stop: 02/20/18 20:46 Bisacodyl (Dulcolax) 10 mg PO DAILYPRN PRN PRN Reason: Constipation Dextrose/Water (Dextrose 50%) 25 gm SLOW IVP PRN PRN PRN Reason: Hypoglycemia Glucagon (Glucagon) 1 mg IM PRN PRN PRN Reason: Hypoglycemia Heparin Sodium (Porcine) (Heparin 1,000 Units/Ml (10 Ml)) 0 units SLOW IVP ASDIR ADAMARIS; Protocol Piperacillin Sod/Tazobactam (Sod 3.375 gm/ Sodium Chloride) 100 mls @ 200 mls/ hr IVPB Q6HR ADAMARIS Last Admin: 02/20/18 06:16 Dose: 100 mls Heparin Sodium/Dextrose (Heparin 25,000 Units/D5w 500 Ml) 500 mls @ 0 mls/hr IVPB INF ADAMARIS; Protocol Dextrose/Water (D5w) 1,000 mls @ 0 mls/hr IV .Q0M PRN PRN Reason: Hypoglycemia Potassium Chloride 40 meq/ (Sodium Chloride) 270 mls @ 135 mls/hr IVPB ASDIR PRN PRN Reason: FOR SERUM K+ 2.5 - 3.5 Potassium Chloride 40 meq/ (Device) 100 mls @ 50 mls/hr IVPB ASDIR PRN PRN Reason: FOR SERUM K+ 2.5 - 3.5 Magnesium Sulfate 1 gm/ Sodium (Chloride) 102 mls @ 102 mls/hr IV PRN PRN PRN Reason: MAG LEVEL 1.4 - 2.0 Magnesium Sulfate 2 gm/ Device 100 mls @ 100 mls/hr IVPB ASDIR PRN PRN Reason: MAGNESIUM < 1.4 Potassium Phosphate 9 mmol/ (Sodium Chloride) 103 mls @ 25.75 mls/hr IVPB ASDIR PRN PRN Reason: Phosphate 1.0-1.8 Potassium Phosphate 12 mmol/ (Sodium Chloride) 254 mls @ 63.5 mls/hr IV ASDIR PRN PRN Reason: Serum phosphate 0.5-0.9 Potassium Phosphate 15 mmol/ (Sodium Chloride) 255 mls @ 63.75 mls/hr IV ASDIR PRN PRN Reason: Serum Phos < 0.5 Sodium Chloride (1/2 Normal Saline) 1,000 mls @ 75 mls/hr IV .[id number] [facility] Last Admin: 02/20/18 10:27 Dose: Not Given Insulin Human Lispro (Humalog) 0 units SC .MILD SLIDING SCALE PRN PRN Reason: Mild Correctional Scale Magnesium Oxide (Magnesium Oxide) 400 mg PO BIDPRN PRN PRN Reason: FOR SERUM MAG 1.4 - 2.0 Magnesium Oxide (Magnesium Oxide) 800 mg PO PRN PRN PRN Reason: FOR SERUM MAG < 1.4 Miscellaneous Medication (Ccu Electrolyte Replacement) 1 each IVPB ONE [facility] Stop: 03/21/18 17:41 Miscellaneous Medication (Phos-Nak) 1 pkt PO TIDPRN PRN PRN Reason: FOR PHOS LEVEL 1.0 - 1.8 Miscellaneous Medication (Phos-Nak) 2 pkt PO TIDPRN PRN PRN Reason: FOR PHOS LEVEL 0.5 - 1.0 Ccu Electrolyte (Replacement Protocol) 0 each FS PRN PRN PRN Reason: FOR ELECTROLYTE REPLACEMENT Potassium Chloride (K-Dur) 40 meq PO ASDIR PRN PRN Reason: FOR SERUM K+ 2.5 - 3.5 Potassium Chloride (Klor-Con) 40 meq PER TUBE ASDIR PRN PRN Reason: FOR SERUM K+ 2.5-3.5 Sodium Chloride (Flush - Normal Saline) 10 ml IVF Q12HR [facility] Last Admin: 02/19/18 21:07 Dose: Not Given Sodium Chloride (Flush - Normal Saline) 10 ml IVF PRN PRN PRN Reason: Saline Flush
[2018-02-20 12:15] LABS: PTT 231.4 SEC (22.9-36.1)
[2018-02-20 14:24] LABS: PTT 145.5 SEC (22.9-36.1)
--- NOTE | 2018-02-20 15:36 | CON ---
DATE OF CONSULTATION: 02/20/2018 REASON FOR CONSULTATION: Urothelial cancer. HISTORY OF PRESENT ILLNESS: Mr. Fountain is a pleasant 63-year-old male with high grade urothelial can cer who had a recent progression in 12/2017. He was started on immunotherapy consisting of Keytruda and completed 2 cycles. He presented to our clinic yesterday for cycle 3. He had complaints of weak ness, fatigue, dizziness, poor appetite and nosebleeds. He had recently started Xarelto for a left l ower extremity DVT on 01/29/2018. His blood pressure yesterday was 78/50. He had taken his amlodipi ne, Coreg and hydralazine that morning prior to arrival. He received 2 liters of IV fluids and some steroids. When he got up to use the bathroom, he unfortunately had a syncopal episode with loss of c onsciousness. He did arouse quickly once he was back in supine position. He was brought in by EMS t o the emergency room for further evaluation and treatment. He had a CT angio of the chest which show ed bilateral pulmonary emboli. There were pulmonary nodules consistent with diffuse metastatic disea se in the liver. He was admitted and started on a heparin drip. His blood pressure has responded, b ut remains in the ICU. PAST MEDICAL HISTORY: 1. High grade metastatic urothelial carcinoma, squamous cell type. 2. Diabetes mellitus 2. 3. Hypertension. 4. Hyperlipidemia. 5. Cerebrovascular accident. 6. Deep venous thrombosis. 7. Chronic kidney disease. 8. Transient ischemic attack. PAST SURGICAL HISTORY: 1. Cystoscopy. 2. Ureteroscopy. 3. MediPort. ALLERGIES: No known drug allergies. HOME MEDICATIONS: 1. Coreg 12.5 mg daily. 2. Allopurinol 200 mg daily. 3. Lipitor 20 mg daily. 4. Flomax 0.4 mg daily. 5. Hydralazine 100 mg t.i.d. 6. Xarelto 20 mg daily. 7. Amlodipine 10 mg daily. FAMILY HISTORY: Mother had esophageal cancer, sister had breast cancer. SOCIAL HISTORY: , has 2 children, lives with his spouse. No alcohol, tobacco or illicit drug use. REVIEW OF SYSTEMS: Twelve point review of system is negative except for noted in HPI. PHYSICAL EXAMINATION: VITAL SIGNS: Temperature is 97.6, pulse is 79, respiratory rate 25, BP is 114/57. He is 95% on 2 li ters. GENERAL: Well-developed, well-nourished male in no acute distress. HEENT: Normocephalic, atraumatic. Pupils equal and reactive to light. NECK: Supple. CARDIOVASCULAR: Regular rate and rhythm. LUNGS: Clear anterior. ABDOMEN: Soft, nontender, bowel sounds are positive. EXTREMITIES: He has 1+ bilateral lower extremity edema. SKIN: No rash. HEMATOLOGIC: No petechia or purpura. NEUROLOGIC: Nonfocal. PSYCHIATRIC: The patient is more alert and answers questions appropriately. PERTINENT LABORATORY AND X-RAYS: Current WBCs are 13.9, hemoglobin 10.1, hematocrit 32.6, platelet c ount is 97,000. He has got 70% neutrophils, 25% bands, 2% lymphocytes. Sodium is 140, potassium 4.1 , chloride 111, CO2 is 23, BUN is 42, creatinine 1.54, calcium is 11.4, total bilirubin is 0.9, AST i s 54, ALT 31, alkaline phosphatase is 118. BNP is 181. Troponin is 0.108, serum total protein is 6. 5, albumin 1.9, globulin 4.6. IMPRESSION: 1. Metastatic urothelial carcinoma on immunotherapy with Keytruda. 2. Bilateral pulmonary embolus. 3. Recent deep venous thrombosis. 4. Hypercalcemia. DISCUSSION: The patient has been started on heparin drip. Dr. Butler is considering tPA at some po int. We will leave the anticoagulation to the critical care doctors. He has received IV fluids and his calcium has improved. We will consider Zometa, if calcium is not better with IV fluids in the ne xt 24 hours. He only received 2 cycles of immunotherapy. Plan to resume once he has recovered from this acute illness. Thank you for the consult. We will follow him closely.
--- NOTE | 2018-02-20 17:05 | EKG ---
Test Reason : Blood Pressure : / mmHG Vent. Rate : 071 BPM Atrial Rate : 071 BPM P-R Int : 150 ms QRS Dur : 074 ms QT Int : 378 ms P-R-T Axes : 033 019 005 degrees QTc Int : 410 ms Normal sinus rhythm Nonspecific T wave abnormality Abnormal ECG Confirmed by HERIBERTO CASTRO ([id number]), food editor ELINA ROGERS ([id number] on 02/20/2018 5:04:32 PM Referred By: Confirmed By:HERIBERTO CASTRO
[2018-02-20] MEDS: Sodium Chloride 0.9% 1,000 ML IV SCH (19:08)
[2018-02-21 03:09] LABS: PTT 189.7 SEC (22.9-36.1)
[2018-02-21 03:21] LABS: ALT (SGPT) 30 U/L (8-55); AST (SGOT) 56 U/L (5-34); Albumin 1.9 g/dL (3.4-4.8); Alkaline Phosphatase 123 U/L (40-150); Anion Gap 13 mmol/L (10-20); BUN (Urea Nitrogen) 37 mg/dL (8.4-25.7); Band 7 % (5-11); Bilirubin, Total 0.8 mg/dL (0.2-1.2); Calc. Creatinine Clearance 66 mL/min (70-130); Calcium 11.4 mg/dL (7.8-10.44); Carbon Dioxide 21 mmol/L (23-31); Chloride 112 mmol/L (98-107); Estimated GFR-MDRD 50; Globulin 4.3 g/dL (2.4-3.5); Glucose 127 mg/dL (80-115); Hypochromia SLIGHT = 6-15 cells (100X) (0-5/hpf); MDiff Complete? YES; Mean Corpuscular HGB CONC 30.8 g/dL (32.0-36.0); Mean Corpuscular Hemoglobin 26.4 pg (27.0-31.0); Mean Corpuscular Volume 85.8 fL (78.0-98.0); Mean Platelet Volume 10.5 fL (7.4-10.4); Monocytes 1 % (0-10); Neutrophil 92 % (42-75); PLT Morphology Comment Appears Decreased; Platelet Count 84 thou/uL (130-400); Polychromasia SLIGHT = 2-3 cells (100X) (0-2/hpf); Potassium 3.6 mmol/L (3.5-5.1); Protein, Total 6.2 g/dL (5.8-8.1); RBC Distribution Width 15.8 % (11.5-14.5); Sodium 142 mmol/L (136-145); White Blood Cell (WBC) Count 19.5 thou/uL (4.8-10.8)
[2018-02-21 03:25] LABS: Troponin I 0.083 ng/mL (< 0.028)
[2018-02-21] MEDS: Sodium Chloride 0.45% 1,000 ML IV SCH ×3 (05:43→22:00)
[2018-02-21] MEDS: Piperacillin/Tazobactam 3.375 GM in Sodium Chloride 0.9% 100 ML IVPB SCH ×3 (05:43→19:21)
--- NOTE | 2018-02-21 11:29 | PDOC.PN ---
- Subjective Encounter Start Date: 02/21/18 Encounter Start Time: 10:30 Subjective: is awake, no sob or chest pain -: at bedside - Objective MAR Reviewed: Yes Vital Signs & Weight: Vital Signs (12 hours) Temp Pulse Ox 02/21/18 08:00 97.6 F 92 L 02/21/18 04:00 98.0 F Weight Admit Weight 197 lb Weight 198 lb 6.656 oz Most Recent Monitor Data Heart Rate from ECG 73 NIBP 128/66 NIBP BP-Mean 86 Respiration from ECG 25 SpO2 94 I&O: 02/20/18 02/21/18 02/22/18 06:59 06:59 06:59 Intake Total 907 3515 60 Output Total 4 901 Balance 903 2614 60 Result Diagrams: 02/21/18 02:42 02/21/18 02:42 Phys Exam - Physical Examination HEENT: PERRLA, moist MMs Neck: no JVD, supple Respiratory: no wheezing, no rales Cardiovascular: RRR, no significant murmur Gastrointestinal: soft, non-tender, positive bowel sounds Musculoskeletal: pulses present, edema present Neurological: non-focal, moves all 4 limbs Dx/Plan (1) Pulmonary embolism Code(s): I26.99 - OTHER PULMONARY EMBOLISM WITHOUT ACUTE COR PULMONALE Status : Acute Qualifiers: Pulmonary embolism type: saddle Chronicity: acute Acute cor pulmonale presence: without acute cor pulmonale Qualified Code(s): I26.92 - Saddle embolus of pulmonary artery without acute cor pulmonale (2) Transitional cell carcinoma Code(s): C68.9 - MALIGNANT NEOPLASM OF URINARY ORGAN, UNSPECIFIED Status: Chronic Comment: with multiple mets to liver and lungs (3) Multiple lesions of metastatic malignancy Code(s): C79.9 - SECONDARY MALIGNANT NEOPLASM OF UNSPECIFIED SITE Status: Chronic (4) Syncope Code(s): R55 - SYNCOPE AND COLLAPSE Status: Acute Comment: sec to PE (5) severe hypoalbuminemia Status: Chronic (6) Diabetes mellitus Code(s): E11.9 - TYPE 2 DIABETES MELLITUS WITHOUT COMPLICATIONS Status: Chronic Qualifiers: Diabetes mellitus type: type 2 Diabetes mellitus alf insulin use: without termite exterminator use Diabetes mellitus complication status: with unspecified complications Qualified Code(s): E11.8 - Type 2 diabetes mellitus with unspecified complications (7) Hyperlipidemia Code(s): E78.5 - HYPERLIPIDEMIA, UNSPECIFIED Status: Chronic Qualifiers: Hyperlipidemia type: unspecified Qualified Code(s): E78.5 - Hyperlipidemia , unspecified - Plan is off heparin, now on eliquis -: hemostable -: oral solid diet, tx to onc floor -: d/w and patient at bedside, is on keytruda as no clinical trial option -: -s were available for his cancer at [facility]. He is also a bit confused * . from 3 weeks and thinks it could be adrenal insuff induced by Keytruda. Will obtain cortisol levels and give a dose of hydrocortisone Prognosis is poor with multiple mets, was diagnosed with left urothelial cancer in mar 2017, had left nephrectomy with ureterectomy plus failure of prior chemotherapy. Has mets noted from july of this year. Review of Systems - Medications/Allergies Allergies/Adverse Reactions: Allergies Allergy/AdvReac Type Severity Reaction Status Date / Time No Known Allergies Allergy Verified 03/17/17 10:56 Medications: Current Medications Acetaminophen (Tylenol) 650 mg [place] Q6H PRN PRN Reason: Fever > 101 or Mild Pain 1-3 Allopurinol (Zyloprim) 200 mg PO HS ADAMARIS Apixaban (Eliquis) 10 mg PO BID ADAMARIS Atorvastatin Calcium (Lipitor) 20 mg PO HS ADAMARIS Bisacodyl (Dulcolax) 10 mg PO DAILYPRN PRN PRN Reason: Constipation Carvedilol (Coreg) 3.125 mg PO BID ADAMARIS Dextrose/Water (Dextrose 50%) 25 gm SLOW IVP PRN PRN PRN Reason: Hypoglycemia Glucagon (Glucagon) 1 mg IM PRN PRN PRN Reason: Hypoglycemia Piperacillin Sod/Tazobactam (Sod 3.375 gm/ Sodium Chloride) 100 mls @ 200 mls/ hr IVPB Q6HR [facility] Last Admin: 02/21/18 05:43 Dose: 100 mls Dextrose/Water (D5w) 1,000 mls @ 0 mls/hr IV .Q0M PRN PRN Reason: Hypoglycemia Sodium Chloride (1/2 Normal Saline) 1,000 mls @ 75 mls/hr IV .[id number] [facility] Last Admin: 02/21/18 05:43 Dose: 1,000 mls Insulin Human Lispro (Humalog) 0 units SC .MILD SLIDING SCALE PRN PRN Reason: Mild Correctional Scale Ccu Electrolyte (Replacement Protocol) 0 each FS PRN PRN PRN Reason: FOR ELECTROLYTE REPLACEMENT Sodium Chloride (Flush - Normal Saline) 10 ml IVF Q12HR ADAMARIS Last Admin: 02/21/18 09:14 Dose: 10 ml Tamsulosin HCl (Flomax) 0.4 mg PO QAM ADAMARIS
[2018-02-21] MEDS ORDERED: Hydrocortisone Sod Succ/PF 100 mg/2 ml Vial IVP SCH (11:45)
--- NOTE | 2018-02-21 13:57 | PRG ---
DATE OF SERVICE: 02/21/2018 SUBJECTIVE: This morning, he is awake, alert, and responsive. He denies any pain. Denies difficult y breathing. OBJECTIVE: VITAL SIGNS: His sats are on room air, blood pressure 140/80, respiratory rate 18, temperature 97. CHEST: Decreased breath sounds, no wheezing. CARDIAC: Normal S1 and S2, no gallops. ABDOMEN: Soft, no masses. LABORATORY DATA: Creatinine is 1.43. His BNP is 122. His CAT scan shows extensive bilateral mets w ith loculated left-sided pleural effusion. White count 19,000, H and H of 10 and 30, platelet count is 84. IMPRESSION: 1. Pulmonary emboli. 2. Renal failure. 3. Metastatic transitional cell carcinoma. 4. Deep vein thrombosis. 5. Transient ischemic attack. PLAN: He was transferred out of the ICU to a monitored bed. We will follow.
[2018-02-21] MEDS: Allopurinol 100 MG TAB PO SCH (21:16)
[2018-02-21] MEDS: Carvedilol 3.125 MG TAB PO SCH (21:16)
[2018-02-21] MEDS: Atorvastatin Calcium 20 MG TAB PO SCH (21:16)
[2018-02-21] MEDS: Apixaban 5 MG TAB PO SCH (22:53)
[2018-02-22] MEDS: Piperacillin/Tazobactam 3.375 GM in Sodium Chloride 0.9% 100 ML IVPB SCH ×5 (00:49→23:50)
[2018-02-22 03:12] LABS: #Lymphocytes 0.7 thou/uL (1.20-3.40); #Monocytes 0.6 thou/uL (0.11-0.59); #Neutrophils 15.8 thou/uL (1.40-6.50); %Eosinophils 0.1 % (0.0-10.0); %Lymphocytes 3.8 % (21.0-51.0); %Monocytes 3.7 % (0.0-10.0); %Neutrophils 92.4 % (42.0-75.0); Hemoglobin 9.9 g/dL (14.0-18.0); Mean Corpuscular HGB CONC 31.5 g/dL (32.0-36.0); Mean Corpuscular Hemoglobin 26.9 pg (27.0-31.0); Mean Corpuscular Volume 85.5 fL (78.0-98.0); Platelet Count 77 thou/uL (130-400); Red Blood Cell (RBC) Count 3.67 mill/uL (4.70-6.10); White Blood Cell (WBC) Count 17.1 thou/uL (4.8-10.8)
[2018-02-22 03:51] LABS: Anion Gap 13 mmol/L (10-20); BUN (Urea Nitrogen) 33 mg/dL (8.4-25.7); Calc. Creatinine Clearance 71 mL/min (70-130); Calcium 10.9 mg/dL (7.8-10.44); Carbon Dioxide 22 mmol/L (23-31); Chloride 109 mmol/L (98-107); Estimated GFR-MDRD 54; Glucose 103 mg/dL (80-115); Potassium 3.6 mmol/L (3.5-5.1); Sodium 140 mmol/L (136-145)
[2018-02-22] MEDS: Apixaban 5 MG TAB PO SCH ×2 (09:44→20:38)
[2018-02-22] MEDS: Tamsulosin HCl 0.4 MG CAP PO SCH (09:44)
[2018-02-22] MEDS: Carvedilol 3.125 MG TAB PO SCH ×2 (09:44→20:19)
--- NOTE | 2018-02-22 10:44 | PDOC.PN ---
- Subjective Encounter Start Date: 02/22/18 Encounter Start Time: 09:15 Subjective: no sob or chest pain -: PT couldn't ambulate due to low spo2 -: at bedside - Objective MAR Reviewed: Yes Vital Signs & Weight: Vital Signs (12 hours) Temp Pulse Resp BP Pulse Ox 02/22/18 08:00 98.4 F 75 20 132/63 93 L 02/22/18 04:44 97.4 F L 75 20 121/66 92 L 02/22/18 00:30 97.8 F 87 18 117/57 L 92 L Weight Admit Weight 197 lb Weight 198 lb 11.2 oz Most Recent Monitor Data Heart Rate from ECG 73 NIBP 128/66 NIBP BP-Mean 86 Respiration from ECG 25 SpO2 94 I&O: 02/21/18 02/22/18 02/23/18 06:59 06:59 06:59 Intake Total 3515 2345 Output Total 901 Balance 2614 2345 Result Diagrams: 02/22/18 02:56 02/22/18 02:56 Phys Exam - Physical Examination HEENT: PERRLA, moist MMs Neck: no JVD, supple Respiratory: no wheezing, no rales Cardiovascular: RRR, no significant murmur Gastrointestinal: soft, non-tender, positive bowel sounds Musculoskeletal: pulses present, edema present Neurological: non-focal, moves all 4 limbs Psychiatric: normal affect, A&O x 3 Dx/Plan (1) Pulmonary embolism Code(s): I26.99 - OTHER PULMONARY EMBOLISM WITHOUT ACUTE COR PULMONALE Status : Acute Qualifiers: Pulmonary embolism type: saddle Chronicity: acute Acute cor pulmonale presence: without acute cor pulmonale Qualified Code(s): I26.92 - Saddle embolus of pulmonary artery without acute cor pulmonale Comment: on eliquis (2) Transitional cell carcinoma Code(s): C68.9 - MALIGNANT NEOPLASM OF URINARY ORGAN, UNSPECIFIED Status: Chronic Comment: with multiple mets to liver and lungs (3) Multiple lesions of metastatic malignancy Code(s): C79.9 - SECONDARY MALIGNANT NEOPLASM OF UNSPECIFIED SITE Status: Chronic (4) Syncope Code(s): R55 - SYNCOPE AND COLLAPSE Status: Acute Comment: sec to PE (5) severe hypoalbuminemia Status: Chronic (6) Diabetes mellitus Code(s): E11.9 - TYPE 2 DIABETES MELLITUS WITHOUT COMPLICATIONS Status: Chronic Qualifiers: Diabetes mellitus type: type 2 Diabetes mellitus extermination supervisor insulin use: without extermination supervisor use Diabetes mellitus complication status: with unspecified complications Qualified Code(s): E11.8 - Type 2 diabetes mellitus with unspecified complications (7) Hyperlipidemia Code(s): E78.5 - HYPERLIPIDEMIA, UNSPECIFIED Status: Chronic Qualifiers: Hyperlipidemia type: unspecified Qualified Code(s): E78.5 - Hyperlipidemia , unspecified - Plan is on eliquis -: zosyn, nebs, nasal oxygen -: to ambulate with PT on oxygen and rw -: d/w at bedside, she will d/w palliative care in am and onc -: might need placement will let us know by tomorrow * . Review of Systems - Medications/Allergies Allergies/Adverse Reactions: Allergies Allergy/AdvReac Type Severity Reaction Status Date / Time No Known Allergies Allergy Verified 03/17/17 10:56 Medications: Current Medications Acetaminophen (Tylenol) 650 mg [place] Q6H PRN PRN Reason: Fever > 101 or Mild Pain 1-3 Allopurinol (Zyloprim) 200 mg PO [facility] Last Admin: 02/21/18 21:16 Dose: 200 mg Apixaban (Eliquis) 10 mg PO BID [facility] Last Admin: 02/22/18 09:44 Dose: 10 mg Atorvastatin Calcium (Lipitor) 20 mg PO [facility] Last Admin: 02/21/18 21:16 Dose: 20 mg Bisacodyl (Dulcolax) 10 mg PO DAILYPRN PRN PRN Reason: Constipation Carvedilol (Coreg) 3.125 mg PO BID [facility] Last Admin: 02/22/18 09:44 Dose: 3.125 mg Dextrose/Water (Dextrose 50%) 25 gm SLOW IVP PRN PRN PRN Reason: Hypoglycemia Glucagon (Glucagon) 1 mg IM PRN PRN PRN Reason: Hypoglycemia Piperacillin Sod/Tazobactam (Sod 3.375 gm/ Sodium Chloride) 100 mls @ 200 mls/ hr IVPB Q6HR [facility] Last Admin: 02/22/18 06:08 Dose: 100 mls Dextrose/Water (D5w) 1,000 mls @ 0 mls/hr IV .Q0M PRN PRN Reason: Hypoglycemia Sodium Chloride (1/2 Normal Saline) 1,000 mls @ 75 mls/hr IV .[id number] [facility] Last Admin: 02/21/18 22:00 Dose: 1,000 mls Insulin Human Lispro (Humalog) 0 units SC .MILD SLIDING SCALE PRN PRN Reason: Mild Correctional Scale Ccu Electrolyte (Replacement Protocol) 0 each FS PRN PRN PRN Reason: FOR ELECTROLYTE REPLACEMENT Sodium Chloride (Flush - Normal Saline) 10 ml IVF Q12HR [facility] Last Admin: 02/22/18 09:44 Dose: 10 ml Tamsulosin HCl (Flomax) 0.4 mg PO QAM [facility] Last Admin: 02/22/18 09:44 Dose: 0.4 mg
--- NOTE | 2018-02-22 13:44 | MRI ---
MRI BRAIN NONCONTRAST: DATE: 02/22/18 HISTORY: 63-year-old male with high grade urothelial carcinoma presents with acute encephalopathy. Rule out brain metastasis. TECHNIQUE: The patient refused IV contrast injection. COMPARISON: MRI brain with and without contrast dated 07/17/16. FINDINGS: Images are degraded by patient motion, some severely so. There are several patchy new foci of restric karine diffusion in the left cerebellar hemisphere. The largest one is wedge-shaped and measures approxi mately 1.5 x 2.5 cm. They have hyperintense T2 signal. There is a moderate sized region of encephalomalacia and gliosis, without restricted diffusion, in th e left medial occipital lobe and encroaching upon the adjacent portion of posteromedial left temporal lobe, representing an old infarction that is much more extensive that what was demonstrated on the 0 07/17/16 MRI. There is another new finding of several tiny foci of T2 hyperintensity in an anteroposterior array al ena the bilateral frontal and parietal lobes, involving both cortex, subcortical white matter, and de ep white matter, representing acute or subacute watershed infarctions between each sided MCA and AMADA territories. There is no evidence of recent or remote intra-axial hemorrhage. Ventricles are normal in size and co nfiguration. No mass effect, midline shift, or extra-axial fluid collection. IMPRESSION: 1. Multiple small acute infarctions in the left PICA (posterior-inferior cerebellar artery) territor y. 2. Multiple tiny watershed zone infarctions between the anterior cerebral artery territories and mid dle cerebral artery territories, in the bilateral cerebral hemispheres. 3. Moderate sized old infarction in the left posterior cerebral artery territory. 4. Cannot rule out intracranial brain metastasis without IV contrast. The patient refused IV contras t. MARIO Noonan POS: [facility]
[2018-02-22] MEDS: Sodium Chloride 0.45% 1,000 ML IV SCH (14:10)
[2018-02-22] MEDS: Allopurinol 100 MG TAB PO SCH (20:19)
[2018-02-22] MEDS: Atorvastatin Calcium 20 MG TAB PO SCH (20:20)
--- NOTE | 2018-02-22 22:26 | PRG ---
DATE OF SERVICE: 02/22/2018 SUBJECTIVE: Atul Fountain is a 63-year-old gentleman, who was confused last night. An MRI of his hea d was ordered. OBJECTIVE: VITAL SIGNS: His sats were low when he sat up, but in bed is about 93%, blood pressure 120/59, respi rations 18. CHEST: Decreased breath sounds, no wheezing. CARDIAC: Normal S1, S2. No gallops. ABDOMEN: Soft, no masses. LABORATORY DATA: Creatinine 1.3. White count , H and H 9 and 31. IMPRESSION: 1. Metastatic carcinoma with loculated pleural effusion, multiple lesions. 2. History of cerebrovascular accident. 3. Pulmonary emboli, deep venous thrombosis. I will switch him over to Eliquis. Continue PT and supportive care. Palliative care to see the patient.
[2018-02-23] MEDS: Piperacillin/Tazobactam 3.375 GM in Sodium Chloride 0.9% 100 ML IVPB SCH (06:03)
[2018-02-23] MEDS: Apixaban 5 MG TAB PO SCH ×2 (08:18→20:31)
[2018-02-23] MEDS: Amoxicillin/Potassium Clav 875 MG TAB PO SCH ×2 (08:19→20:31)
[2018-02-23] MEDS: Tamsulosin HCl 0.4 MG CAP PO SCH (08:19)
[2018-02-23] MEDS: Carvedilol 3.125 MG TAB PO SCH ×2 (08:19→20:31)
--- NOTE | 2018-02-23 11:48 | PDOC.PN ---
- Subjective Encounter Start Date: 02/23/18 Encounter Start Time: 10:45 Subjective: no sob, is eating better -: at bedside - Objective MAR Reviewed: Yes Vital Signs & Weight: Vital Signs (12 hours) Temp Pulse Resp BP Pulse Ox 02/23/18 08:00 92 L 02/23/18 07:00 97.6 F 68 18 125/62 92 L 02/23/18 03:38 97.4 F L 82 18 130/61 92 L 02/22/18 23:49 98.0 F 88 18 125/61 91 L Weight Admit Weight 197 lb Weight 197 lb 8 oz Most Recent Monitor Data Heart Rate from ECG 73 NIBP 128/66 NIBP BP-Mean 86 Respiration from ECG 25 SpO2 94 I&O: 02/22/18 02/23/18 02/24/18 06:59 06:59 06:59 Intake Total 2345 1325 Output Total 975 Balance 2345 350 Result Diagrams: 02/22/18 02:56 02/22/18 02:56 Phys Exam - Physical Examination HEENT: PERRLA, moist MMs Neck: no JVD, supple Respiratory: no wheezing, no rales Cardiovascular: RRR, no significant murmur Gastrointestinal: soft, non-tender, positive bowel sounds Musculoskeletal: no edema, pulses present Neurological: non-focal, moves all 4 limbs Dx/Plan (1) Pulmonary embolism Code(s): I26.99 - OTHER PULMONARY EMBOLISM WITHOUT ACUTE COR PULMONALE Status : Acute Qualifiers: Pulmonary embolism type: saddle Chronicity: acute Acute cor pulmonale presence: without acute cor pulmonale Qualified Code(s): I26.92 - Saddle embolus of pulmonary artery without acute cor pulmonale Comment: on eliquis (2) Transitional cell carcinoma Code(s): C68.9 - MALIGNANT NEOPLASM OF URINARY ORGAN, UNSPECIFIED Status: Chronic Comment: with multiple mets to liver and lungs (3) Multiple lesions of metastatic malignancy Code(s): C79.9 - SECONDARY MALIGNANT NEOPLASM OF UNSPECIFIED SITE Status: Chronic (4) Syncope Code(s): R55 - SYNCOPE AND COLLAPSE Status: Acute Comment: sec to PE (5) severe hypoalbuminemia Status: Chronic (6) Diabetes mellitus Code(s): E11.9 - TYPE 2 DIABETES MELLITUS WITHOUT COMPLICATIONS Status: Chronic Qualifiers: Diabetes mellitus type: type 2 Diabetes mellitus care home insulin use: without remote computer terminal operator use Diabetes mellitus complication status: with unspecified complications Qualified Code(s): E11.8 - Type 2 diabetes mellitus with unspecified complications (7) Hyperlipidemia Code(s): E78.5 - HYPERLIPIDEMIA, UNSPECIFIED Status: Chronic Qualifiers: Hyperlipidemia type: unspecified Qualified Code(s): E78.5 - Hyperlipidemia , unspecified (8) Acute CVA (cerebrovascular accident) Code(s): I63.9 - CEREBRAL INFARCTION, UNSPECIFIED Status: Acute Comment: multiple small left pica and watershed infarcts at kristy/mca areas Old large left frame carver spindle infarct. - Plan is on eliquis, oxygen by nasal canula -: d/w at bedside, wants to take him home eventually -: family is deciding on code status/hospice/palliative care options -: will set up HH with PT, wants another day before she can arrange home -: -for him to come. Prognosis poor. Is on keytruda for urothelial ca * . continue asp, lipitor. switch zosyn to augmentin Cognitive deficits from cva, no motor involvement on clinical exam. Has no trouble swallowing and has been eating all his hospitalization. Review of Systems - Medications/Allergies Allergies/Adverse Reactions: Allergies Allergy/AdvReac Type Severity Reaction Status Date / Time No Known Allergies Allergy Verified 03/17/17 10:56 Medications: Current Medications Acetaminophen (Tylenol) 650 mg SD Q6H PRN PRN Reason: Fever > 101 or Mild Pain 1-3 Allopurinol (Zyloprim) 200 mg PO [facility] Last Admin: 02/22/18 20:19 Dose: 200 mg Amoxicillin/Clavulanate Potassium (Augmentin) 875 mg PO Q12HR [facility] Last Admin: 02/23/18 08:19 Dose: 875 mg Apixaban (Eliquis) 10 mg PO BID [facility] Last Admin: 02/23/18 08:18 Dose: 10 mg Aspirin (Aspirin Chewable) 81 mg PO DAILY [facility] Last Admin: 02/23/18 08:19 Dose: 81 mg Atorvastatin Calcium (Lipitor) 20 mg PO HS [facility] Last Admin: 02/22/18 20:20 Dose: 20 mg Bisacodyl (Dulcolax) 10 mg PO DAILYPRN PRN PRN Reason: Constipation Carvedilol (Coreg) 3.125 mg PO BID [facility] Last Admin: 02/23/18 08:19 Dose: 3.125 mg Dextrose/Water (Dextrose 50%) 25 gm SLOW IVP PRN PRN PRN Reason: Hypoglycemia Glucagon (Glucagon) 1 mg IM PRN PRN PRN Reason: Hypoglycemia Dextrose/Water (D5w) 1,000 mls @ 0 mls/hr IV .Q0M PRN PRN Reason: Hypoglycemia Insulin Human Lispro (Humalog) 0 units SC .MILD SLIDING SCALE PRN PRN Reason: Mild Correctional Scale Ccu Electrolyte (Replacement Protocol) 0 each FS PRN PRN PRN Reason: FOR ELECTROLYTE REPLACEMENT Sodium Chloride (Flush - Normal Saline) 10 ml IVF Q12HR [facility] Last Admin: 02/23/18 08:19 Dose: 10 ml Tamsulosin HCl (Flomax) 0.4 mg PO QAM [facility] Last Admin: 02/23/18 08:19 Dose: 0.4 mg
[2018-02-23] MEDS ORDERED: Triple Antibiotic Ointment 30 GM TUBE TOP PRN (19:30)
[2018-02-23] MEDS: Atorvastatin Calcium 20 MG TAB PO SCH (20:31)
[2018-02-23] MEDS: Allopurinol 100 MG TAB PO SCH (20:31)
[2018-02-24] MEDS: Carvedilol 3.125 MG TAB PO SCH (09:44)
[2018-02-24] MEDS: Apixaban 5 MG TAB PO SCH (09:44)
[2018-02-24] MEDS: Amoxicillin/Potassium Clav 875 MG TAB PO SCH (09:44)
[2018-02-24] MEDS: Tamsulosin HCl 0.4 MG CAP PO SCH (09:44)
--- NOTE | 2018-02-24 10:17 | PRG ---
DATE OF SERVICE: 02/23/2018 SERVICE: Pulmonary Medicine. INTERVAL HISTORY: The patient denies having significant shortness of breath or chest discomfort. Otherwise, there has been no interval change to his condition. The patient's family is transitioning home with hospice first thing in the morning. PHYSICAL EXAMINATION: VITAL SIGNS: Afebrile, pulse 68, blood pressure 125/62, respirations 18, saturation 92% on 4 liters nasal cannula. GENERAL: The patient is awake, alert, in no apparent distress. LUNGS: Decent air entry. Dependent crackles are minimal. There is no prolonged expiratory phase or wheezing present. HEART: Normal rate, regular. ABDOMEN: Soft, nontender, and nondistended. Bowel sounds are positive. MUSCULOSKELETAL: No cyanosis or clubbing. There is no pitting in the bilateral lower extremities. NEUROLOGIC: Grossly nonfocal. IMAGING DATA: MRI of the brain demonstrates multiple small subacute infarctions in the left PICA territory. Multiple watershed infarctions were also noted. Old infarction is noted in the posterior artery territory. The patient refused IV contrast, so an intracranial metastasis cannot be excluded. ASSESSMENT: 1. Acute pulmonary embolism. 2. Syncope. 3. Transition cell carcinoma, widely metastatic. 4. Acute hypoxic respiratory failure. 5. Chronic kidney disease. 6. Non-ST elevation myocardial infarction, DISCUSSION AND PLAN: The patient was transitioning home with hospice. At this point, he has no further requirements for inpatient Pulmonary or critical care opinion. He will need to go out on anticoagulation, and oxygen for comfort. Please call with additional questions or concerns moving forward. BIBI
[2018-02-24 10:25] VITALS: BP 135/63; TEMP 97.5
--- NOTE | 2018-02-24 11:05 | PDOC.PN ---
- Subjective Encounter Start Date: 02/24/18 Encounter Start Time: 10:00 Subjective: no new complaints, at bedside - Objective Resuscitation Status: Resuscitation Status DNR:Do Not Resuscitate MAR Reviewed: Yes Vital Signs & Weight: Vital Signs (12 hours) Temp Pulse Resp BP Pulse Ox 02/24/18 08:00 97.5 F L 68 16 135/63 92 L 02/24/18 07:42 97.5 F L 68 16 135/63 92 L Weight Admit Weight 197 lb Weight 197 lb 8 oz Most Recent Monitor Data Heart Rate from ECG 73 NIBP 128/66 NIBP BP-Mean 86 Respiration from ECG 25 SpO2 94 I&O: 02/23/18 02/24/18 02/25/18 06:59 06:59 06:59 Intake Total 1325 850 Output Total 975 Balance 350 850 Result Diagrams: 02/22/18 02:56 02/22/18 02:56 Phys Exam - Physical Examination HEENT: PERRLA, moist MMs Neck: no JVD, supple Respiratory: no wheezing, no rales Cardiovascular: RRR, no significant murmur Gastrointestinal: soft, non-tender, positive bowel sounds Musculoskeletal: no edema, pulses present Neurological: non-focal, moves all 4 limbs Dx/Plan (1) Pulmonary embolism Code(s): I26.99 - OTHER PULMONARY EMBOLISM WITHOUT ACUTE COR PULMONALE Status : Acute Qualifiers: Pulmonary embolism type: saddle Chronicity: acute Acute cor pulmonale presence: without acute cor pulmonale Qualified Code(s): I26.92 - Saddle embolus of pulmonary artery without acute cor pulmonale Comment: on eliquis (2) Transitional cell carcinoma Code(s): C68.9 - MALIGNANT NEOPLASM OF URINARY ORGAN, UNSPECIFIED Status: Chronic Comment: with multiple mets to liver and lungs (3) Multiple lesions of metastatic malignancy Code(s): C79.9 - SECONDARY MALIGNANT NEOPLASM OF UNSPECIFIED SITE Status: Chronic (4) Syncope Code(s): R55 - SYNCOPE AND COLLAPSE Status: Acute Comment: sec to PE (5) severe hypoalbuminemia Status: Chronic (6) Diabetes mellitus Code(s): E11.9 - TYPE 2 DIABETES MELLITUS WITHOUT COMPLICATIONS Status: Chronic Qualifiers: Diabetes mellitus type: type 2 Diabetes mellitus client care manager insulin use: without client care manager use Diabetes mellitus complication status: with unspecified complications Qualified Code(s): E11.8 - Type 2 diabetes mellitus with unspecified complications (7) Hyperlipidemia Code(s): E78.5 - HYPERLIPIDEMIA, UNSPECIFIED Status: Chronic Qualifiers: Hyperlipidemia type: unspecified Qualified Code(s): E78.5 - Hyperlipidemia , unspecified (8) Acute CVA (cerebrovascular accident) Code(s): I63.9 - CEREBRAL INFARCTION, UNSPECIFIED Status: Acute Comment: multiple small left pica and watershed infarcts at kristy/mca areas Old large left health program specialist infarct. - Plan dc pt home with hospice per families wishes -: prognosis poor -: will need home oxygen * .
--- NOTE | 2018-02-24 19:34 | DIS ---
DATE OF ADMISSION: 02/19/2018 DATE OF DISCHARGE: 02/24/2018 DISCHARGE DISPOSITION: To home with hospice. PRIMARY DISCHARGE DIAGNOSES: Bilateral pulmonary embolus, transitional cell carcinoma with multiple mets to liver and lungs, syncope due to pulmonary embolism, acute cerebrovascular accident with histo ry of prior large left posterior cerebral artery infarct, severe hypoalbuminemia, failure to thrive, moderate to severe protein malnutrition due to inadequate oral intake and likely diabetes mellitus ty pe 2, dyslipidemia. PROCEDURES DONE DURING HOSPITALIZATION: Patient had CT angio chest done on the day of admission, [facility] showed bilateral pulmonary emboli, progression of pulmonary metastatic disease with numerous enlar ging pulmonary nodules. There is also associated mediastinal and hilar adenopathy, bilateral pleural effusions, diffuse metastatic disease to the liver. Echo with 2D Doppler showed EF of 60% to 65% wi th grade 1/3 diastolic dysfunction, large pleural effusion was seen. MRI brain without IV contrast a s patient did not want contrast showed multiple small acute infarcts in the left EMBEDDED DEVELOPER territory, multi ple tiny watershed zone infarcts between the AMADA and MCA territories in bilateral cerebral hemisphere s, moderate sized old infarct in the left EMBEDDED DEVELOPER territory. H&H 10 and 31, platelet count 77, MCV is 85 . Discharge BUN and creatinine is 33 and 1.3, albumin was 1.9. Troponin was indeterminate peaking u p to 0.1. CK-MB 1.0. DISCHARGE MEDICATIONS: Eliquis 5 mg twice daily, allopurinol 200 mg p.o. at bedtime, Coreg 3.125 mg p.o. twice daily, Augmentin 875 mg p.o. twice daily for 5 days, Lipitor 20 mg p.o. at bedtime, Flomax 0.4 mg p.o. q.a.m. ALLERGIES: No known drug allergies. DISCHARGE PLAN: The patient is being discharged to home with hospice. BRIEF COURSE DURING HOSPITALIZATION: Patient initially was brought to emergency room on the 15th aft er he had passed out. Initial CT angio chest done showed bilateral massive PE. He was also hypotens [place] and was placed in the ICU. He was on heparin drip initially. Patient was on Xarelto prior to th is. He has had consultation with Dr. Butler for Pulmonary Critical Care. Patient's CAT scan also r evealed multiple mets in the lungs and liver as well. He also had very low albumin levels and likely had progressive transitional cell carcinoma. The patient was transitioned to oral Eliquis. He has encephalopathy likely due to progression of his cancer, poor oral intake and current multiple debilit ating disease. Palliative care consultation was requested due to progressive cancer and multiple met s. The patient and family have opted for home with hospice. His overall prognosis is very poor. Th e patient was seen and examined on the day of discharge.
== END 2018-02-24 12:31 | disposition hospice, home (50) | DRG 175 ==
LOC: ERS 13:59 → CCU 19:56 → ONC 02-21 11:52
PROVIDERS: ADMIT Internal Medicine; ATTEND Internal Medicine
DX: I26.99 Other pulmonary embolism without acute cor pulmonale (principal); I63.9 Cerebral infarction, unspecified; J96.01 Acute respiratory failure with hypoxia; I21.4 Non-ST elevation (NSTEMI) myocardial infarction; E43 Unspecified severe protein-calorie malnutrition; C78.7 Secondary malignant neoplasm of liver and intrahepatic bile duct; C78.00 Secondary malignant neoplasm of unspecified lung; G93.40 Encephalopathy, unspecified; N40.0 Benign prostatic hyperplasia without lower urinary tract symptoms; Z86.73 Personal history of transient ischemic attack (TIA), and cerebral infarction without residual deficits; E11.9 Type 2 diabetes mellitus without complications; E66.9 Obesity, unspecified; Z90.5 Acquired absence of kidney; Z86.718 Personal history of other venous thrombosis and embolism; Z85.54 Personal history of malignant neoplasm of ureter; R55 Syncope and collapse; I95.9 Hypotension, unspecified; E78.5 Hyperlipidemia, unspecified; M10.9 Gout, unspecified; Z79.899 Other long term (current) drug therapy; Z79.82 Long term (current) use of aspirin; E11.22 Type 2 diabetes mellitus with diabetic chronic kidney disease; R62.7 Adult failure to thrive; Z79.01 Long term (current) use of anticoagulants; E83.52 Hypercalcemia
CPT/HCPCS: 36415; 70551; 71275; 80048; 80053; 82248; 82533; 82553; 83615; 83880; 84100; 84443; 84484; 84550; 85007; 85025; 85027; 85610; 85730; 93005; 93306; 94760; 96365; 96367; 96372; G8978-GP-CL; G8979-GP-CJ; G8987-GO-CK; G8988-GO-CI; J0456; J1644; J1650; J1720; J2543; J2997; J7050